=== PATIENT | female | born 1965 | race Caucasian/White ===

== ENCOUNTER → 2018-08-11 09:23 | Outpatient (CLI) | payer OTHER, SELFPAY ==
--- NOTE | 2018-08-11 09:27 | BI_ITS ---
MAMMOGRAPHY - BILATERAL SCREENING REASON FOR EXAM: Female, 53 years old. Routine annual screening examination. PERTINENT HISTORY: Grandmother with breast cancer. History of infected sebaceous glands in the right axillary region. TECHNIQUE: Digital bilateral breast devin (3D mammographic acquisition) in the CC and MLO projections. 2-D mediolateral oblique (MLO) and craniocaudad (CC) views of both breasts were obtained. CAD: Full Field Digital Mammography with Computer Added Detection was performed. COMPARISON: Comparison is made with prior examination dated July 25, 2017 and July 21, 2016. FINDINGS: Breast Composition: The breasts are heterogeneously dense, which may obscure small masses. There are no dominant masses or suspicious calcifications. Stable benign-appearing bilateral axillary lymph nodes. Stable well-defined nodules in the upper outer aspect of the right breast suggestive of intramammary lymph nodes. No other significant abnormalities are identified. There has been no significant change since the prior study. BI/SCREENING MAMM (CAD), BILAT IMPRESSION: Stable bilateral screening mammogram. Yearly follow-up mammogram recommended. (A) ASSESSMENT CATEGORY: BIRADS Category 2: Benign. A letter regarding these results will be sent to the patient by the facility within 30 days. Approximately 10% of breast cancers are not detected by mammography. A normal mammogram should not delay biopsy of a clinically suspicious abnormality. [id number] Electronically Signed: Teodoro Saleem MD at 10:08 EDT Tel [phone], Service support ,
== END ==
PROVIDERS: Family Provider Family Medicine; PCP Family Medicine; Visit Provider Obstetrics & Gynecology
DX: Z12.31 Encounter for screening mammogram for malignant neoplasm of breast (principal)
CPT/HCPCS: 77063; 77067

== ENCOUNTER → 2019-08-24 09:48 | Outpatient (CLI) | payer OTHER, SELFPAY ==
--- NOTE | 2019-08-24 09:51 | BI_ITS ---
MAMMOGRAPHY - BILATERAL SCREENING 3-D TOMOSYNTHESIS REASON FOR EXAM: Female, 54 years old. Screening PERTINENT HISTORY: No significant family history. BILATERAL DIGITAL MAMMOGRAM WITH TOMOSYNTHESIS: Mediolateraloblique and craniocaudal views demonstrate no evidence of dominant parenchymal masses. No cluster of microcalcifications or architectural distortion is seen. No evidence of skin thickening is identified There has been no significant change since 08/11/2018. Breast Density: The breast tissue is heterogeneously dense, which may obscure small masses. CAD was used to assist in final assessment. IMPRESSION: NORMAL MAMMOGRAM BILATERALLY. FINAL ASSESSMENT: BIRAD 1 (NEGATIVE) YEARLY MAMMOGRAM RECOMMENDED Approximately 10% of breast cancers are not detected by mammography. A normal mammogram should not delay biopsy of a clinically suspicious abnormality. Electronically Signed: Mark Watson, at 7:58 EDT Tel , Service support , BI/SCREEN MAMM (CAD) W/RICH MIRAMONTES
== END ==
PROVIDERS: Family Provider Family Medicine; PCP Family Medicine; Referring Provider Obstetrics & Gynecology; Visit Provider Obstetrics & Gynecology
DX: Z12.31 Encounter for screening mammogram for malignant neoplasm of breast (principal)
CPT/HCPCS: 77063; 77067

== ENCOUNTER 2020-07-30 10:07 | Day surgery (SDC) | payer OTHER, SELFPAY ==
[2020-07-24 15:58] LABS: Hematocrit 41.8 % (37-47); Hemoglobin 12.9 g/dL (12.0-15.0); Mean Corp Hgb Conc 30.9 g/dL (32-36); Mean Corpuscular Hgb 26.1 pg (27.0-32.0); Mean Corpuscular Volume 84.6 fL (81-99); Mean Platelet Vol. 10.1 fl (6.2-12.0); Platelet Count 438 K/mm3 (150-450); RBC Distribution Width SD 43.3 fl (35.1-43.9); Red Blood Count 4.94 M/mm3 (4.2-5.4); White Blood Count 11.8 K/mm3 (4.4-11.0)
[2020-07-24 16:11] LABS: International Normalized Ratio 1.2; Partial Thromboplast Time 26.7 Seconds (24.1-36.2); Prothrombin Time (Protime)PT. 14.4 SECONDS (11.7-14.9)
[2020-07-24 16:28] LABS: Anion Gap 5 (5-15); BUN 13 mg/dL (7-18); BUN/Creat Ratio 14.8 RATIO (10-20); Calcium,Total 9.5 mg/dL (8.5-10.1); Chloride 103 mmol/L (98-107); Creatinine, Serum 0.88 mg/dL (0.55-1.02); EST Glomerular Filtration Rate 71 mL/min (>60); Est Glom Filt Rate - Afr Amer 86 mL/min (>60); Glucose 114 mg/dL (74-106); Potassium 3.4 mmol/L (3.5-5.1); Sodium Level 140 mmol/L (136-145)
[2020-07-28 14:07] LABS: Hemoglobin A1c 6.9 % (3.8-5.6)
[2020-07-30] VITALS (7 sets, daily range): BP systolic 93–160; BP diastolic 29–98; PULSE 75–90; RESP 16–18; TEMP 25–38.2; O2SAT 93–97; BMI 39.9
[2020-07-30] MEDS: Lactated Ringers 1,000 ML 125 ML IV (10:46)
--- NOTE | 2020-07-30 11:30 | HP.PCM_ITS ---
History and Physical Date of Admission: 07/30/20 Surgical History and Physical Date: 07/30/2020 Name: NENITA RANGEL Age: 55 Date of : 1965 Nenita Rangel, a 55 year old female 2 0 2 0 2, presents for Hysteroscopy, dilation and curettage on July 30, 2020 at 11:45. Nenita is being seen for pre op visit. Pt to have HS, D and C with Dr. Jason Rock 07/30/20. Pt has 9mm endometrium and fibroids. Medications and allergies are up to date. Procedure consents signed and reviewed with pt. AM as above. hx postmenopasual bleeding with thickened endometrial stripe. Office biopsy complicated by cervical stenosis with insufficient endometrial sampling. m MEDICATIONS HISTORY: Current medications prescribed by our practice are: 1. misoprostol 200 mcg tablet, 4 tabs per vagina as directed Patient is also takin. Diovan HCT 320 mg-25 mg tablet, daily ALLERGIES: Lisinopril, Dry cough, Ceftin, C. difficile with diarrhea, Percocet and Anxiety Illnesses - hypertension, heart murmur and prediabetic Hospitalizations - Childbirth and see surgery Review of Systems: GENERAL - Denies fever, or chills SKIN - Denies skin changes EYES - Denies visual changes EARS - Denies difficulty hearing NOSE - Denies nasal congestion or bleeding MOUTH - Denies sore throat or difficulty swallowing NECK - Denies pain or swelling RESPIRATORY - Denies shortness of breath or wheezing CARDIOVASCULAR - Denies palpitations or chest pain GASTROINTESTINAL - Denies nausea, vomiting, diarrhea, constipation GENITOURINARY - Denies dysuria, frequency of urination, incontinence of urine MUSCULOSKELETAL - Denies joint or muscle pain NEUROLOGICAL - Denies localized numbness or weakness PSYCHIATRIC - Denies depression or anxiety ENDOCRINE - Denies heat or cold intolerance, weight loss or gain HEMATO-IMMUNOLOGIC - Denies excesive bleeding with cuts SOCIAL HISTORY: Alcohol Use - denies drinking Smoking - denies smoking Diet - moderate, balanced diet Lifestyle - Exercise - none Seat Belt Use - always Employer - [employer] 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 D and C 1989 ; - 2. C sections 1983 ; - 3. , 1987 ; - 4. Uterine Ablation 2004 ; - 5. Gallbladder Removal 2002 ; - 6. L Knee Surgery 2016 ; - Clean out PHYSICAL EXAM BP- 130/80 Sitting, Right arm, large cuff Temp- 98.6 Taken Orally Weight- 226.38210 lbs Height- 62.00 inch BMI:41.42 CONSTITUTIONAL - NAD, well nourished, and well developed SKIN - No rash, lesions, or ulcers HEENT - normocephalic, atraumatic, sclerae anicteric LUNGS - normal respiratory rate and rhythm CARDIAC - Regular rate and rhythm without rubs, murmurs, or gallops ABDOMEN - Without hepatosplenomegaly, distention, masses, rebound, or guarding; normal bowel sounds; no hernias EXTREMITIES - No edema or calf tenderness NEUROLOGICAL - normal gait, normal balance, normal motor PSYCHIATRIC - A and O to time, place, person, mood and affect Laboratory Tests 07/24/20 07/24/20 07/24/20 Range/Units 15:30 15:30 15:30 WBC (4.4-11.0) K/mm3 RBC (4.2-5.4) M/mm3 Hgb (12.0-15.0) g/dL Hct (37-47) % MCV (81-99) fL MCH (27.0-32.0) pg MCHC (32-36) g/dL RDW Std Deviation (35.1-43.9) fl RDW Coeff of [place] (11.6-14.6) % Plt Count (150-450) K/mm3 MPV (6.2-12.0) fl PT (11.7-14.9) SECONDS INR APTT (24.1-36.2) Seconds Sodium 140 (136-145) mmol/L Potassium 3.4 L (3.5-5.1) mmol/L Chloride 103 (98-107) mmol/L Carbon Dioxide 32.0 (21.0-32.0) mmol/L Anion Gap 5 (5-15) BUN 13 (7-18) mg/dL Creatinine 0.88 (0.55-1.02) mg/dL Est GFR (MDRD) Af Amer 86 (>60) mL/min Est GFR (MDRD) Non-Af 71 (>60) mL/min BUN/Creatinine Ratio 14.8 (10-20) RATIO Glucose 114 H (74-106) mg/dL Hemoglobin A1c 6.9 H (3.8-5.6) % Calcium 9.5 (8.5-10.1) mg/dL COVID-19 (EMIR) (Not Detected) Blood Type A POSITIVE Antibody Screen NEGATIVE 07/24/20 07/24/20 07/24/20 Range/Units 15:30 15:30 14:00 WBC 11.8 H (4.4-11.0) K/mm3 RBC 4.94 (4.2-5.4) M/mm3 Hgb 12.9 (12.0-15.0) g/dL Hct 41.8 (37-47) % MCV 84.6 (81-99) fL MCH 26.1 L (27.0-32.0) pg MCHC 30.9 L (32-36) g/dL RDW Std Deviation 43.3 (35.1-43.9) fl RDW Coeff of [place] 14.0 (11.6-14.6) % Plt Count 438 (150-450) K/mm3 MPV 10.1 (6.2-12.0) fl PT 14.4 (11.7-14.9) SECONDS INR 1.2 APTT 26.7 (24.1-36.2) Seconds Sodium (136-145) mmol/L Potassium (3.5-5.1) mmol/L Chloride (98-107) mmol/L Carbon Dioxide (21.0-32.0) mmol/L Anion Gap (5-15) BUN (7-18) mg/dL Creatinine (0.55-1.02) mg/dL Est GFR (MDRD) Af Amer (>60) mL/min Est GFR (MDRD) Non-Af (>60) mL/min BUN/Creatinine Ratio (10-20) RATIO Glucose (74-106) mg/dL Hemoglobin A1c (3.8-5.6) % Calcium (8.5-10.1) mg/dL COVID-19 (EMIR) Not Detected (Not Detected) Blood Type Antibody Screen US 07/03/20 UTERUS: 7.8 x 5.8 x 5.4cm. submucous fibroid seen measures 1.5 x 2.1 x 2cm. subserous fibroid seen measures 1.9 x 2.6 x 2.2cm. ENDOMETRIAL ECHO: 9.3mm. RIGHT OVARY: 2.3 x 1.1 x 1.2cm. LEFT OVARY: 1.9 x 2.2 x 1.4cm. BLADDER: No bladder masses visualized. FREE FLUID: NONE. OTHER PERTINENT FINDINGS: submucous fibroid seen, subserous fibroid seen and thick and irregular endo. ASSESSMENT/PLAN: 1. Postmenopausal Bleeding US shows 9mm endometrium with submucus fibroids office endometrial biopsy with insufficent endometrial sampling, cervical stenosis noted on exam Plan for hysteroscopy, dilation and curettage - r/b/i/a reviewed Preop labs appropriate, HbA1C 6.9 Prior EKG obtained and NSR Patient and spouse given opportunity to ask questions and questions answered to their satisfaction. Proceed as planned.
--- NOTE | 2020-07-30 11:55 | EMB_PTH ---
PATIENT: KARON RANGEL LOC: [facility] [place] U#:[id number] AGE/SX: 55/F ROOM: RE07/30/[address]: Dr. Alison Rock MD : 1965 BED: DIS: 07/30/2020 SPEC #: [id number] RECD: 07/30/20 14:15 STATUS: CECIL GRAEME #: [id number] RHEA: 07/30/20 11:[address]: Alison Israel DEPT: SURGICAL PATHOLOGY RECD BY: Ena Barboza ENTERED: 07/30/20 15:06 SP TYPE: ENDOM BX/C SANDRA DR: Dr. Antoine Cherry MD Tissues: Endometrium, NOS Procedures: Surgery Specimen Level IV HEADER OPERATION: Dilation and curettage PRE-OP DIAGNOSIS: Postmenopausal bleeding TISSUE SUBMITTED: Endometrial curettings MICROSCOPIC DIAGNOSIS Endometrial curettings: A fragment of endometrial polyp with simple endometrial hyperplasia without atypia. SJ:janell 07/31/20 MICROSCOPIC DESCRIPTION Slides are reviewed. GROSS DESCRIPTION Received in fixative is one container labeled with the patient's name and designated endometrial curettings. The specimen consists of a piece of ibarra-pink polyp measuring 2.5 x 1 x 0.5 cm. The polyp is bisected. Also present in the container are multiple fragments of hemorrhagic soft tissue measuring in aggregate 2 x 0.5 x 0.1 cm. The entire specimen is submitted in two cassettes. Cassette 2 contains the bisected polyp. / SJ:janell 07/30/20 TC:5 CPT: 11972
--- NOTE | 2020-07-30 13:19 | OP.PCM_ITS ---
Problem List (1) Postmenopausal bleeding Status: Acute Report of Operation Date of Procedure: 07/30/20 Pre-Operative Diagnosis: Postmenopausal bleeding. Thickened endometrium Post-Operative Diagnosis: Postmenopausal bleeding. Thickened endometrium Surgery/Procedure Performed:: Hysteroscopy. Dilation and curettage Description of Surgical Findings:: Cystic lesion at apex of the uterus, cervical stenosis Type of Anesthesia:: Local MAC Anesthesiologist: Roscoe Epstein Specimen's removed: Endometrial curettings Estimated Blood Loss (mL): 10 Fluids Replaced: 100 mL Description of Procedure: Indications: 55-year-old postmenopausal woman with complaint of postmenopausal bleeding. She underwent a pelvic ultrasound demonstrating a 9 mm endometrium. She had an office biopsy that was complicated by cervical stenosis. Despite an office cervical dilatation there was insufficient endometrial tissue for evaluation. Patient was advised to proceed with hysteroscopy D&C for further evaluation of her bleeding. Procedural risks, benefits, indications and alternatives were reviewed at length. Patient desired to proceed. Procedure: The patient was brought to the operating room and signed was performed. She is placed in the dorsal supine position and induced under MAC anesthetic. She was repositioned to dorsal lithotomy. An examination under anesthesia was performed. The perineum was prepped and draped in sterile fashion. Patient was placed into high lithotomy a bivalve speculum was placed vaginally the cervix grasped at the anterior cervical lip using a Gilbert tenaculum. A paracervical block was placed using 20 cc of 1% lidocaine. The cervix was subsequently dilated and hysteroscopy performed with a 5.5 mm scope with demonstration of a cystic lesion at the uterine fundus. Sharp curettage was performed however repeat hysteroscopy confirmed persistence of the cystic lesion. The cervix was up dilated to 30 Icelandic and hysteroscopy was performed using the 8 mm operative scope with attempt to biopsy the cystic mass using operative forceps unsuccessful. I again performed sharp curettage with retrieval of the cystic mass. Hysteroscopy was again performed demonstrating integrity of the uterine cavity. The procedure was complete. The patient was patient into dorsal supine, awakened, and transferred to the recovery room without complication. Sponge counts were correct x2. - Complications None, patient tolerated the procedure well. - Admit VTE Documentation VTE Present on Admission: No VTE Mechan Device Prophylaxis: SCD's VTE Pharm Prophylaxis ordered?: No
--- NOTE | 2020-07-30 13:25 | PCM.DC.D&C ---
Discharge Diet: No Restrictions Discharge Activity: Return to Normal Activity, May not drive while taking narcotic pain medications., May Shower, - - No tub bath for 2 weeks May resume sexual activity in: - - 2-4 weeks Call your doctor if you observe: Fever of 101 or Higher, Inability to urinate, Inability to have a bowel movement, Using more than one pad per hour, Shortness of breath, Chest pain, Calf discomfort, Uncontrolled pain Additional Instructions: You may take take Tylenol or Aleve at home as needed for pain. -Tylenol - 2 tabs by mouth every 8 hours as needed. -Aleve - 2 tabs by mouth every 12 hours. Allergies/Adverse Reactions: Allergies acetaminophen [From Percocet] Allergy (Verified 07/30/20 10:31) Chest tightness anxious/panic attacks lisinopril Allergy (Verified 07/30/20 10:30) Shortness of breath CAUSES COUGH oxycodone [From Percocet] Allergy (Verified 07/30/20 10:31) Chest tightness anxious/panic attacks Medications to take at Discharge Cholecalciferol (Vitamin D3) [Vitamin D3] 25 mcg PO DAILY 07/22/20 Fexofenadine HCl [Verenice Allergy] 60 mg PO DAILY 07/22/20 Theanine [l-Theanine] 25 gm MC DAILY 07/22/20 Valsartan/Hydrochlorothiazide [Diovan Hct 320-25 MG Tablet] 1 tab PO DAILY 07/22/20 traMADol [Ultram] 50 mg PO Q6H PRN PRN 3 Days #5 tablet 07/30/20 The following prescriptions were given: traMADol [Ultram] 50 mg PO Q6H PRN PRN 3 Days #5 tablet PRN Reason: pain Transmission Status: Received by [facility]/pharmacy #[id number] Primary Care Physician: Antoine Cherry MD [Primary Care Provider] - Test Results: Test results from this visit will be discussed in further detail at your follow-up appointment, if applicable. Please Follow Up With: Earnest When: 2-4 weeks
== END 2020-07-30 14:55 | disposition home or self-care (01) ==
LOC: SDC 10:08 → AC 10:08
PROVIDERS: Anesthesiology; PCP Family Medicine; Referring Provider Obstetrics & Gynecology; Visit Provider Obstetrics & Gynecology
PROC: (CPT 58120; principal; 2020-07-30 11:40)
DX: N85.01 Benign endometrial hyperplasia (principal); D25.0 Submucous leiomyoma of uterus; N95.0 Postmenopausal bleeding; Z11.59 Encounter for screening for other viral diseases; I10 Essential (primary) hypertension; R01.1 Cardiac murmur, unspecified; K58.9 Irritable bowel syndrome, unspecified; Z78.0 Asymptomatic menopausal state; Z86.2 Personal history of diseases of the blood and blood-forming organs and certain disorders involving the immune mechanism; Z79.899 Other long term (current) drug therapy
CPT/HCPCS: 00952; 58558; 36415; 80048; 83036; 85027; 85610; 85730; 86850; 86900; 86901; 87635; 88305; C9803; J7120; J2405; U0003

== ENCOUNTER → 2020-08-25 17:30 | Outpatient (CLI) | payer OTHER, SELFPAY ==
[2020-07-30 10:33] VITALS: BMI 39.9
--- NOTE | 2020-08-25 17:21 | BI_ITS ---
MAMMOGRAPHY - BILATERAL SCREENING REASON FOR EXAM: Female, 55 years old. Routine annual screening examination. PERTINENT HISTORY: Non-contributory. TECHNIQUE: Digital bilateral breast rich (3D mammographic acquisition) in the CC and MLO projections. 2-D mediolateral oblique (MLO) and craniocaudad (CC) views of both breasts were obtained. CAD: Full Field Digital Mammography with Computer Added Detection was performed. COMPARISON: Comparison is made with prior study dated 08/24/2019 and 08/11/2018. FINDINGS: Breast Composition: The breasts are heterogeneously dense, which may obscure small masses. There is a 5.1 mm well-defined nodule in the slightly upper lateral portion of the right breast. This is essentially unchanged. This was demonstrated to be a cyst on prior sonogram. There now is evidence of a 1 cm slightly irregular nodule in the slightly medial deep portion of the left breast. Correlation with ultrasound is recommended. No other significant abnormalities are identified. BI/SCREEN MAMM (CAD) W/RICH BILAT IMPRESSION: 1 cm slightly irregular nodule seen on the craniocaudad view along the slightly medial deep portion of the breast. Correlation with ultrasound is recommended. ASSESSMENT CATEGORY: BIRADS Category 0: Incomplete. Need additional imaging evaluation. A letter regarding these results will be sent to the patient by the facility within 30 days. Approximately 10% of breast cancers are not detected by mammography. A normal mammogram should not delay biopsy of a clinically suspicious abnormality. [id number] Electronically Signed: Teodoro Saleem, at 8:56 EDT , Service support ,
== END ==
PROVIDERS: PCP Family Medicine; Referring Provider Obstetrics & Gynecology; Visit Provider Obstetrics & Gynecology
DX: Z12.31 Encounter for screening mammogram for malignant neoplasm of breast (principal)
CPT/HCPCS: 77063; 77067

== ENCOUNTER → 2020-09-02 13:22 | Outpatient (CLI) | payer OTHER, SELFPAY ==
[2020-07-30 10:33] VITALS: BMI 39.9
--- NOTE | 2020-09-02 13:24 | US_ITS ---
STUDY: ULTRASOUND BREAST - LEFT REASON FOR EXAM: Female, 55 years old. Abnormal screening mammogram. TECHNIQUE: Axial and longitudinal images of the LEFT breast were performed with a high resolution ultrasound transducer. # OF IMAGES: 41 COMPARISON: Comparison is made with prior mammogram dated 08/25/2020. FINDINGS: LEFT Breast: At the 7 o''clock position of the breast at 5 cm from nipple, there is a 7 mm x 7 mm x 3 mm complex/solid nodule. Adjacent to this there is a similar appearing nodule measuring 6 mm x 7 mm x 3 mm. These may represent complicated cyst although tissue diagnosis is recommended. US/Breast Limited Unilateral IMPRESSION: 2 adjacent subcentimeters solid/cystic nodules at the 7 o''clock position of the breast at 5 cm from nipple. Biopsy is recommended. ASSESSMENT CATEGORY: BIRADS Category 4: Suspicious - Biopsy Should Be Considered. A letter regarding these results will be sent to the patient by the facility within 30 days. Electronically Signed: Teodoro Saleem, at 14:13 EDT , Service support ,
== END ==
PROVIDERS: PCP Family Medicine; Referring Provider Obstetrics & Gynecology; Visit Provider Obstetrics & Gynecology
DX: N63.20 Unspecified lump in the left breast, unspecified quadrant (principal)
CPT/HCPCS: 76642

== ENCOUNTER 2020-09-10 11:00 | Observation (INO) | payer OTHER, SELFPAY ==
[2020-07-30 10:33] VITALS: BMI 39.9
--- NOTE | 2020-09-04 16:17 | EKG12_ITS ---
Test Reason : PREOP Blood Pressure : / mmHG Vent. Rate : 075 BPM Atrial Rate : 075 BPM P-R Int : 146 ms QRS Dur : 074 ms QT Int : 376 ms P-R-T Axes : 051 010 015 degrees QTc Int : 419 ms Normal sinus rhythm with sinus arrhythmia Normal ECG Confirmed by OLEG COLON, MAURICIO ([id number]), publications editor OLI MOODY ([id number]) on 09/07/2020 8:13:37 AM Referred By: Alison Rock Confirmed By:MAURICIO DEJESUS MD
[2020-09-04 17:13] LABS: Hemoglobin 13.5 g/dL (12.0-15.0); Mean Corp Hgb Conc 31.4 g/dL (32-36); Mean Corpuscular Hgb 26.6 pg (27.0-32.0); Mean Corpuscular Volume 84.8 fL (81-99); Platelet Count 458 K/mm3 (150-450); RBC Distribution Width CV 13.7 % (11.6-14.6); Red Blood Count 5.07 M/mm3 (4.2-5.4); White Blood Count 11.8 K/mm3 (4.4-11.0)
[2020-09-04 17:27] LABS: International Normalized Ratio 1.2; Prothrombin Time (Protime)PT. 14.5 SECONDS (11.7-14.9)
[2020-09-04 17:45] LABS: Anion Gap 4 (5-15); BUN 14 mg/dL (7-18); BUN/Creat Ratio 18.7 RATIO (10-20); Calcium,Total 9.4 mg/dL (8.5-10.1); Chloride 105 mmol/L (98-107); Creatinine, Serum 0.75 mg/dL (0.55-1.02); EST Glomerular Filtration Rate 85 mL/min (>60); Est Glom Filt Rate - Afr Amer 103 mL/min (>60); Glucose 95 mg/dL (74-106); Potassium 3.9 mmol/L (3.5-5.1); Sodium Level 139 mmol/L (136-145)
[2020-09-04 17:49] LABS: Hemoglobin A1c 6.6 % (3.8-5.6)
[2020-09-08 21:00] VITALS: BP 120/70; PULSE 67; RESP 16; TEMP 36.6; O2SAT 96
[2020-09-10] VITALS (14 sets, daily range): BP systolic 120–132; BP diastolic 48–80; PULSE 64–93; RESP 16–20; TEMP 36.2–37.2; O2SAT 90–100; BMI 38.8
--- NOTE | 2020-09-10 00:26 | PCM.HPOB.BLA ---
- Problem List (1) Endometrial hyperplasia Status: Acute (2) Postmenopausal bleeding Status: Acute History and Physical Date of Admission: 09/10/20 Date: 09/08/2020 Name: NENITA RANGEL Age: 55 Date of : 1965 HISTORY OF PRESENT ILLNESS: On 09/08/2020, Nenita Rangel, a 55 year old female 2 0 2 0 2, presented for: -- Pre-Op -- Nenita is being seen for pre op visit. Pt to have LAVH/BS 09/08/[address] Jason Rock at [facility]. Pt is having surgery due to endometrial hyperplasia. Surgery consents signed and reviewed with pt. Pt states that Dr. Jason Rock recommended taking the ovaries and at the time Nenita did not want too but states today that she would like the ovaries taken. Pt states she has a biopsy of the left breast scheduled for 09/28/20. Medications and allergies are up to date. AM as above. hx endometrial hyperplasia s/p hysteroscopy, dilation and curettage and is scheduled for LAVH, bilateral salpingectomy. Previously discussed oophorectomy r/b and pt desires to also proceed with bilateral oophorectomy. Preop labs were done last week on 09/04/20. [facility] ALLERGIES: Lisinopril, Dry cough, Ceftin, C. difficile with diarrhea, Percocet and Anxiety MEDICATIONS HISTORY: Current medications prescribed by our practice are: 1. misoprostol 200 mcg tablet, 4 tabs per vagina as directed Patient is also takin. Diovan HCT 320 mg-25 mg tablet, daily REVIEW OF SYSTEMS: GENERAL - Denies fever, or chills SKIN - Denies skin changes EYES - Denies visual changes EARS - Denies difficulty hearing NOSE - Denies nasal congestion or bleeding MOUTH - Denies sore throat or difficulty swallowing NECK - Denies pain or swelling RESPIRATORY - Denies shortness of breath or wheezing CARDIOVASCULAR - Denies palpitations or chest pain GASTROINTESTINAL - Denies nausea, vomiting, diarrhea, constipation GENITOURINARY - Denies dysuria, frequency of urination, incontinence of urine MUSCULOSKELETAL - Denies joint or muscle pain NEUROLOGICAL - Denies localized numbness or weakness PSYCHIATRIC - Denies depression or anxiety ENDOCRINE - Denies heat or cold intolerance, weight loss or gain HEMATO-IMMUNOLOGIC - Denies excesive bleeding with cuts PAST HISTORY: Breast/Ovarian/Colon Cancers - Maternal Grandmother had Breast Cancer Illnesses - hypertension, heart murmur and prediabetic Hospitalizations - Childbirth and see surgery L. popliteal cyst; SURGICAL HISTORY: 1. 07/30/2020 hysteroscopy, D and C Alison Rock MD 2. D and C 1989 3. C sections 1983 4. , 1987 5. Uterine Ablation 2004 6. Gallbladder Removal 2002 7. 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 Illicit Drug Use - denies use of street drugs Sexual Activity - Hours Worked - 40+ Spouse-Sig Other Name - Roman Spouse-Sig 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 Control - postmenopausal PHYSICAL EXAMINATION BP- 140/82 Sitting, Right arm, large cuff Temp- 98.3 Taken Orally Weight- 220.40 lbs Height- 62.00 inch BMI:40.40 CONSTITUTIONAL - NAD, well nourished, and well developed SKIN - No rash, lesions, or ulcers HEENT - normocephalic, atraumatic, sclerae anicteric LUNGS - CTA x2 without wheezes, crackles or rales CARDIAC - Regular rate and rhythm without rubs, murmurs, or gallops ABDOMEN - Without hepatosplenomegaly, distention, masses, rebound, or guarding; normal bowel sounds; no hernias NEUROLOGICAL - normal gait, normal balance, normal motor PSYCHIATRIC - A and O to time, place, person, mood and affect Laboratory Tests 09/04/20 09/04/20 09/04/20 Range/Units 16:42 16:42 16:42 WBC 11.8 H (4.4-11.0) K/mm3 RBC 5.07 (4.2-5.4) M/mm3 Hgb 13.5 (12.0-15.0) g/dL Hct 43.0 (37-47) % MCV 84.8 (81-99) fL MCH 26.6 L (27.0-32.0) pg MCHC 31.4 L (32-36) g/dL RDW Std Deviation 42.0 (35.1-43.9) fl RDW Coeff of [place]oid[place] 13.7 (11.6-14.6) % Plt Count 458 H (150-450) K/mm3 MPV 10.0 (6.2-12.0) fl PT 14.5 (11.7-14.9) SECONDS INR 1.2 APTT 28.0 (24.1-36.2) Seconds Sodium (136-145) mmol/L Potassium (3.5-5.1) mmol/L Chloride (98-107) mmol/L Carbon Dioxide (21.0-32.0) mmol/L Anion Gap (5-15) BUN (7-18) mg/dL Creatinine (0.55-1.02) mg/dL Est GFR (MDRD) Af Amer (>60) mL/min Est GFR (MDRD) Non-Af (>60) mL/min BUN/Creatinine Ratio (10-20) RATIO Glucose (74-106) mg/dL Hemoglobin A1c (3.8-5.6) % Calcium (8.5-10.1) mg/dL COVID-19 (EMIR) (Not Detected) Blood Type A POSITIVE Antibody Screen NEGATIVE 09/04/20 09/04/20 09/04/20 Range/Units 16:42 16:42 16:20 WBC (4.4-11.0) K/mm3 RBC (4.2-5.4) M/mm3 Hgb (12.0-15.0) g/dL Hct (37-47) % MCV (81-99) fL MCH (27.0-32.0) pg MCHC (32-36) g/dL RDW Std Deviation (35.1-43.9) fl RDW Coeff of [place] (11.6-14.6) % Plt Count (150-450) K/mm3 MPV (6.2-12.0) fl PT (11.7-14.9) SECONDS INR APTT (24.1-36.2) Seconds Sodium 139 (136-145) mmol/L Potassium 3.9 (3.5-5.1) mmol/L Chloride 105 (98-107) mmol/L Carbon Dioxide 30.0 (21.0-32.0) mmol/L Anion Gap 4 L (5-15) BUN 14 (7-18) mg/dL Creatinine 0.75 (0.55-1.02) mg/dL Est GFR (MDRD) Af Amer 103 (>60) mL/min Est GFR (MDRD) Non-Af 85 (>60) mL/min BUN/Creatinine Ratio 18.7 (10-20) RATIO Glucose 95 (74-106) mg/dL Hemoglobin A1c 6.6 H (3.8-5.6) % Calcium 9.4 (8.5-10.1) mg/dL COVID-19 (EMIR) Not Detected (Not Detected) Blood Type Antibody Screen ASSESSMENT: 1. Benign Endometrial Hyperplasia PLAN BY DIAGNOSIS: 1. Benign Endometrial Hyperplasia, Polyp Of Corpus Uteri and Postmenopausal Bleeding Hx simple endometrial hyperplasia -residual risk for underlying ca 1-3%, declines medical managemement Plan for LAV, BSO - procedural r/b/i/a reviewed Preop labs reviewed: COVID19 neg, HbA1C 6.6, BMP, CBC, coags wnl Preop packet and instructions reviewed Consents signed and pt given opportunity to ask questions. Questions answered to her satisfaction
[2020-09-10] MEDS: Acetaminophen 500 MG Tablet 1000 MG PO (06:06)
[2020-09-10] MEDS: Heparin Injection (Vial) 5,000 UNIT/ML VIAL 5000 UNIT SC ×2 (06:07→22:05)
[2020-09-10] MEDS: Lactated Ringers 1,000 ML 100 ML IV ×3 (06:18→11:52)
[2020-09-10 06:41] LABS: Bedside Glucose 157 mg/dL (70-110)
[2020-09-10] MEDS: Cefotetan 2 GM in 0.9% NS 100 ML IV (07:30)
--- NOTE | 2020-09-10 07:30 | HYST_PTH ---
PATIENT: KARON RANGEL LOC: MS3 U#:[id number] AGE/SX: 55/F ROOM: MS323 RE09/10/[address]: Dr. Alison Rock MD : [id number] BED: 1 DIS: 09/11/2020 SPEC #: [id number] RECD: 09/10/20 11:22 STATUS: CECIL REShaw #: [id number] RHEA: 09/10/20 07:[address]: Alison Israel DEPT: SURGICAL PATHOLOGY RECD BY: Latanya Schwartz ENTERED: 09/10/20 12:12 SP TYPE: HYSTERECT OTHR DR: Dr. Antoine Cherry MD Tissues: Uterus, NOS Procedures: Surgery Specimen Level V HEADER OPERATION: Hysterectomy, LAVH, salpingo-oophorectomy PRE-OP DIAGNOSIS: Endometrial hyperplasia, postmenopausal bleeding TISSUE SUBMITTED: Uterus, cervix, bilateral fallopian tubes and ovaries MICROSCOPIC DIAGNOSIS Uterus, cervix, bilateral fallopian tubes and ovaries, hysterectomy and bilateral salpingo-oophorectomy: Cervix - no pathologic diagnosis. Endometrium - proliferative endometrium with cystic changes. Myometrium - intramural and subserosal leiomyomas (largest measuring 2.5 cm in greatest dimension). - Adenomyosis. Bilateral fallopian tubes - no pathologic diagnosis. Bilateral ovaries - no pathologic diagnosis. Left tubo-ovarian adhesions. SJ:janell 09/11/20 COMMENT Please make reference to previous specimen ([id number]) endometrial cavity with diagnosis of a fragment of endometrial polyp with simple endometrial hyperplasia without atypia. MICROSCOPIC DESCRIPTION Slides are reviewed. GROSS DESCRIPTION Received in fixative is one container labeled with the patient's name and designated uterus, cervix, bilateral fallopian tubes and ovaries. The specimen consists of a hysterectomy specimen consisting of uterus with cervix and attached bilateral fallopian tubes and ovaries. The uterus with cervix weighs 135?gm and measures 10.5 x 7 x 6 cm. A subserosal nodule is noted on the posterior surface. The rest of the serosal surface is ibarra, glistening and unremarkable. The ectocervical mucosa is unremarkable. The external os is circular in contour. The endocervical canal measures 3.5 cm in length and the endocervical mucosa is ibarra, glistening and unremarkable. The endometrial cavity is compressed and narrow and measures 4.5 cm in length and up to 1.5 cm in width. The endometrium is congested without any mass lesion and measures 0.1 cm in thickness. Sections of the uterine wall reveal multiple intramural and subserosal nodular masses. The large mass in the subserosa measures 2.5 cm in greatest dimension. Sections of these masses reveal ibarra whorled cut surfaces without areas of hemorrhage, necrosis or cystic degeneration. Sections of the uterine wall also reveal ill-defined, trabeculated surfaces suspicious for adenomyosis. The involved uterine wall measures up to 3 cm in thickness. The right fallopian tube measures 6 cm in length and 0.5 cm in diameter. The fimbrial end is identified. Tuboovarian adhesions are not seen. The right ovary measures 2.5 x 2 x 1.5 cm. Sections reveal unremarkable cut surfaces. The left fallopian tube measures 5.5 cm in length and up to 1 cm in diameter. Focal tubo-ovarian adhesions are noted. The left ovary measures 2.5 x 2 x 1.5 cm. Sections do not reveal any mass lesion. Water Purifier Operator sections are submitted in 16 cassettes as follows: 1??anterior cervix, 2 - posterior cervix, 3-5 - anterior uterine wall, 6-8 - posterior uterine wall, entire endometrium is submitted, 9 - largest subserosal nodular mass, 10 - smaller intramural nodular masses, 11 & 12 - service support representative sections uterine wall with trabeculated cut surfaces, 13 - right fallopian tube and ovary, 1416 - left fallopian tube and ovary. / TRAY:janell 09/10/20 TC:1 CPT: 28407
[2020-09-10] MEDS: Lubricating Jelly 60 GM Tube 30 GM TOPICAL (08:07)
[2020-09-10] MEDS: Vasopressin 20 UNITS/ML Vial (08:07)
[2020-09-10] MEDS: Bupivacaine Mpf 0.5% 30 ML VIAL (08:20)
--- NOTE | 2020-09-10 10:39 | PCM.OPRPT ---
Problem List (1) Endometrial hyperplasia Status: Acute (2) Postmenopausal bleeding Status: Acute Report of Operation Date of Procedure: 09/10/20 Pre-Operative Diagnosis: 1. Postmenopausal bleeding. 2. Endometrial hyperplasia. 3. Fibroid uterus Post-Operative Diagnosis: 1. Postmenopausal bleeding. 2. Endometrial hyperplasia without atypia. 3. Fibroid uterus. 4. Pelvic adhesions Surgery/Procedure Performed:: 1. Laparoscopic assisted vaginal hysterectomy. 2. Bilateral salpingo-oophorectomy. 3. 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 She had underwent pelvic ultrasound demonstrating thickened endometrial stripe. Subsequent hysteroscopy dilatation curettage demonstrated endometrial hyperplasia without atypia. She is counseled regarding management options declined medical management and opted to proceed with hysterectomy. Plan for laparoscopic assisted vaginal hysterectomy, bilateral salpingo-oophorectomy. Procedural risks, benefits, indications and alternatives were reviewed at length. Informed consent was obtained. Procedure: The patient was brought to the operating room and signed was performed. She is placed in the dorsal supine position and induced under general anesthesia and intubated. She was repositioned to dorsolithotomy and examination under anesthesia was performed. Her arms were tucked at her sides. The perineum and abdomen were prepped and draped in sterile fashion. A Savage catheter was placed into the bladder. The patient was placed into high lithotomy and weighted speculum placed vaginally. The cervix grasped the anterior cervical lip and vasopressin was injected for total of 20 cc at concentration 20 units in 100 cc of normal saline. The uterus sounded to 7 cm. A [employer] uterine manipulator was placed and secured. The tenaculum was removed from the cervix and the speculum removed from the vagina. The patient was placed into low lithotomy attention turned to the abdomen. An inferior umbilical incision was made using the scalpel. Veress needle was placed with successful hanging drop test and no aspirate with low abdominal entry pressures. The abdomen was insufflated to 15 mmHg. A tap block was placed under laparoscopic guidance in the right and left lower quadrants. Incisions were made at each of the sites and 5 mm ports also placed at each of the sites. In similar fashion a suprapubic incision was made and 5 mm port also placed here under laparoscopic guidance. The patient was placed into Trendelenburg and abdominal pelvic inspection was performed demonstrating bilateral adnexal adhesions. The left adnexa had multiple filmy adhesions regions encasing the infundibulopelvic ligament adhering to the sigmoid colon. The right adnexal adhesions adhered to the distal fallopian tube and the ovary to the ovarian fossa. I proceeded with sharp and blunt dissection of the left pelvic adhesions. A omental adhesion to the left lower pelvic anterior abdominal wall was lysed sharply. The left adnexal adhesions were lysed sharply and bluntly freeing up the infundibulopelvic ligament. The left infundibulopelvic ligament was clamped, coagulated and transected using the Enseal device. The left ureter tract was identified. I proceeded with clamping, coagulation and transection of the left round ligament. The broad ligament was opened anteriorly as well as posteriorly with skeletonization of the uterine vessels. And bladder flap was created at the left. Attention was turned to the right adnexa and adhesions were bluntly and sharply dissected however there was limited ovarian mobility as it was socked into the ovarian fossa. Due to limited mobility I deferred transection of the infundibulopelvic ligament. I proceeded with transection of the right round ligament using the Enseal device. The anterior broad ligament was opened with skeletonization of the uterine vessels and the broad ligament posteriorly was also opened. Opening of the broad ligament allowed posterior axis to the ovarian fossa and the ovarian adhesions were subsequently dissected sharply and bluntly. The proximal right infundibulopelvic ligament was clamped, electrocoagulated and transected using the Enseal device. The bladder flap at the right was completed. The uterine arteries were electrocoagulated bilaterally. Approximately 45 minutes was spent in adhesiolysis laparoscopically. The laparoscope was removed the abdomen was desufflated and attention turned to the perineum. The patient was repositioned to high lithotomy with less steep Trendelenburg. Weighted speculum was placed vaginally and the ZUMI uterine manipulator was removed. The cervix was grasped using a single-tooth tenaculum. A circumferential incision was made using the scalpel around the cervical vesicle junction. The anterior vesicovaginal membrane was dissected sharply using Metzenbaum scissors and the anterior cul-de-sac peritoneum was identified entered sharply. The curved Dalton was placed at this site. Attention was turned to the posterior vagina and the uterosacral ligaments were palpable. The posterior colpotomy further dissected until the posterior cul-de-sac peritoneum was identified then entered sharply. A long weighted speculum was placed into the posterior cul-de-sac. The uterosacral ligament then cardinal ligament and uterine vessels were serially Servando clamped, cut and suture ligated using 0 Vicryl with delivery of the uterus cervix, bilateral tubes and ovaries en bloc. There was an arteriolar bleed at the upper right pedicle which was controlled using suture ligation also with 0 Vicryl. A modified Lloyd culdoplasty was performed incorporating the uterosacral ligaments with the anterior and posterior peritoneum pursestring stitch. The vaginal cuff was reapproximated using serial figure of 8 sutures with good hemostasis. Patient was placed into low lithotomy and attention turned to the abdomen. And laparoscopy again performed with irrigation and suction of the pelvis. The vaginal cuff appeared hemostatic internally as well. The procedure was complete. The laparoscope was removed the abdomen was desufflated. Patient was given several deep breaths to help with further desufflation. The ports were removed from the abdomen. The skin was reapproximated using 4-0 Monocryl by the surgical first front ventilator under my supervision. Steri-Strips and OpSite dressing were placed over each of these incisions. A total of 30 cc of half percent Marcaine was injected for a tap block and locally at the end of the procedure at the incisional sites. The Savage catheter was removed. The patient was placed into dorsal supine position, awakened extubated and will be transferred to the recovery room. Sponge and instrument and needle counts were correct x2. Patient tolerated the procedure well. - Complications none - Admit VTE Documentation VTE Present on Admission: No VTE Mechan Device Prophylaxis: SCD's VTE Pharm Prophylaxis ordered?: Yes
[2020-09-10 11:26] LABS: Bedside Glucose 181 mg/dL (70-110)
[2020-09-10] MEDS: Ondansetron 4 MG/2 ML Vial IV (13:22)
--- NOTE | 2020-09-10 13:29 | CPS ---
pt refused at this due to nausea
[2020-09-10] MEDS: Ketorolac 30 MG/ML Syringe IV ×2 (17:03→23:12)
[2020-09-10 17:25] LABS: Bedside Glucose 157 mg/dL (70-110)
[2020-09-10 23:55] LABS: Bedside Glucose 136 mg/dL (70-110)
[2020-09-11 03:30] VITALS: BP 105/52; PULSE 59; RESP 16; TEMP 36.8; O2SAT 98
[2020-09-11] MEDS: Ketorolac 30 MG/ML Syringe IV (04:00)
[2020-09-11] MEDS: 0.9% Saline Lock 10 ML Syringe IV (04:00)
[2020-09-11 07:06] LABS: Bedside Glucose 116 mg/dL (70-110)
[2020-09-11 07:27] LABS: Hematocrit 35.6 % (37-47); Hemoglobin 11.1 g/dL (12.0-15.0); Mean Corp Hgb Conc 31.2 g/dL (32-36); Mean Corpuscular Hgb 26.6 pg (27.0-32.0); Mean Corpuscular Volume 85.2 fL (81-99); Platelet Count 348 K/mm3 (150-450); RBC Distribution Width CV 13.9 % (11.6-14.6); Red Blood Count 4.18 M/mm3 (4.2-5.4); White Blood Count 16.7 K/mm3 (4.4-11.0)
[2020-09-11 07:50] VITALS: O2SAT 95
[2020-09-11 07:57] LABS: EST Glomerular Filtration Rate 79 mL/min (>60); Est Glom Filt Rate - Afr Amer 96 mL/min (>60); Estimated Creatinine Clearance 64.95 ml/min
--- NOTE | 2020-09-11 08:33 | PN.OBGYN_ITS ---
Patient Problems: Active and Suspected Problems Postmenopausal bleeding (Acute) Endometrial hyperplasia (Acute) Subjective: Nausea resolved. No flatus yet or bowel movement. OOB, voiding without difficulty. Pain controlled. Objective: AVSS - Physical Exam Vitals/I&O's: Vital Signs Temp Pulse Resp BP Pulse Ox 98.2 F 59 L 16 105/52 L 98 09/11/20 03:30 09/11/20 03:30 09/11/20 03:30 09/11/20 03:30 09/11/20 03:30 Oxygen Flow Rate (L/min) 3 Oxygen Delivery Method Nasal Cannula Weight: 99.518 kg Body Mass Index (BMI) 38.8 Finger Stick Blood Glucose 181 Intake and Output for Last 24 Hours 09/09/20 09/10/20 09/11/20 23:59 23:59 23:59 Intake Total 3750 / 3750 120 / 120 Output Total 450 / 750 550 / 550 Balance 3300 / 3000 -430 / -430 General: Alert, Oriented x3, Cooperative, No apparent distress HEENT: Atraumatic, Normocephalic Lungs: Clear to auscultation, Normal air movement Cardiovascular: Regular rate, Regular Rhythm Abdomen: Bowel Sounds Present, Soft, Non Tender, Non-Distended Extremities: No edema, No Calf Tenderness Neurological: Neuro grossly intact Psych/Mental Status: Normal Affect, Appropriate, Alert and oriented to time, place, person, mood and affect Laboratory Results 09/10/20 11:21: POC Glucose 181 H 09/10/20 16:58: POC Glucose 157 H 09/10/20 22:03: POC Glucose 136 H 09/11/20 06:59: POC Glucose 116 H 09/11/20 07:05: WBC 16.7 H, RBC 4.18 L, Hgb 11.1 L, Hct 35.6 L, MCV 85.2, MCH 26.6 L, MCHC 31.2 L, RDW Std Deviation 43.0, RDW Coeff of Loida 13.9, Plt Count 348, MPV 10.0 09/11/20 07:05: Creatinine 0.80, Estim Creat Clear Calc 64.95, Est GFR (MDRD) Af Amer 96, Est GFR (MDRD) Non-Af 79 Current Medications Acetaminophen (Acetaminophen 500 Mg Tablet) 1,000 mg PO Q8H PRN PRN PRN Reason: Pain Score 1-3/10 or Fever Dextrose (Dextrose 50%-Water 25 Gm/50 Ml Disp.Syrin) 0 gm IV X1 PRN; Protocol PRN Reason: Hypoglycemia Glucagon (Glucagon 1 Mg/Ml Syringe) 1 mg IM .X1 PRN PRN Reason: Hypoglycemia Heparin Sodium (Porcine) (Heparin Injection (Vial) 5,000 Unit/Ml Vial) 5,000 unit SC Q12 SANDRA Last Admin: 09/10/20 22:05 Dose: 5,000 unit Documented by: Hydrochlorothiazide (Hydrochlorothiazide 25 Mg Tablet) 25 mg PO DAILY SANDRA Hydromorphone HCl (Hydromorphone 1 Mg/Ml Syringe) 0.5 - 1 mg IV Q3H PRN PRN PRN Reason: Pain Score 4-10 Insulin Human Lispro (Insulin Lispro 100 Unit/Ml Insuln.Pen) 1 - 4 unit SC ACHS [facility] Last Admin: 09/11/20 07:30 Dose: Not Given Documented by: Ketorolac Tromethamine (Ketorolac 30 Mg/Ml Syringe) 30 mg IV Q6H [facility] Stop: 09/15/20 16:31 Last Admin: 09/11/20 04:00 Dose: 30 mg Documented by: Loratadine (Loratadine 10 Mg Tablet) 5 mg PO DAILY PRN PRN Reason: ALLERGIES Losartan Potassium (Losartan Potassium 100 Mg Tablet) 100 mg PO DAILY SANDRA Ondansetron HCl (Ondansetron 4 Mg/2 Ml Vial) 4 mg IV Q4H PRN PRN PRN Reason: NAUSEA Last Admin: 09/10/20 13:22 Dose: 4 mg Documented by: Sodium Chloride (0.9% Saline Lock 10 Ml Syringe) 10 - 40 ml IV UD PRN PRN Reason: SALINE FLUSH Last Admin: 09/11/20 04:00 Dose: 10 ml Documented by: Medical Necessity - Tobacco Use Smoking Status: Never smoker Tobacco Use: Non-smoker Assessment/Plan All Active Problems Postmenopausal bleeding (Acute) Endometrial hyperplasia (Acute) 55yo POD#1 s/p LAVH, BSO -Doing well -Reg diet -DVT ppx -Plan for d/c home
--- NOTE | 2020-09-11 08:36 | PCM.WORK.EX ---
Work/School Excuse Work/School Excuse for:: Caregiver/Parent/Family Please excuse this person from:: Work From: 09/10/20 - Roman's had major surgery on 09/10/20 and requires assistance through 09/13/20 through: 09/13/20
--- NOTE | 2020-09-11 08:39 | DCINST_ITS ---
Discharge Diet: No Restrictions Discharge Activity: Return to Normal Activity, May not drive while taking narcotic pain medications., May Shower, - - May take a tub bath in 2 weeks May shower in (days): 0 Lifting Restrictions: 5-10 lb Call your doctor if you observe: Fever of 101 or Higher, Change in Color, Inability to urinate, Inability to have a bowel movement, Using more than one pad per hour, Shortness of breath, Chest pain, Calf discomfort, Uncontrolled pain Suture Line Care: Avoid Pulling/Pushing Remove Dressing in (days):: 1 - Remove steristrips bandaids in 4-5 days Cleanse incision/area with: Soap & Water Allergies/Adverse Reactions: Allergies lisinopril Allergy (Verified 09/10/20 05:58) Shortness of breath CAUSES COUGH oxycodone [From Percocet] Allergy (Verified 09/10/20 05:58) Chest tightness anxious/panic attacks Medications to take at Discharge Cholecalciferol (Vitamin D3) [Vitamin D3] 25 mcg PO DAILY 07/22/20 Fexofenadine HCl [Verenice Allergy] 60 mg PO DAILY PRN 07/22/20 Theanine [l-Theanine] 25 gm MC DAILY PRN 07/22/20 Valsartan/Hydrochlorothiazide [Diovan Hct 320-25 MG Tablet] 1 tab PO DAILY 07/22/20 Immucore 1 tab PO DAILY 08/28/20 Ibuprofen 600 mg PO TID PRN #30 tab 09/11/20 traMADol [Ultram] 50 mg PO Q6H PRN PRN #5 tablet 09/11/20 The following prescriptions were given: Ibuprofen 600 mg PO TID PRN #30 tab PRN Reason: Pain 1-10 Or Fever Transmission Status: Pending to [id number] traMADol [Ultram] 50 mg PO Q6H PRN PRN #5 tablet PRN Reason: severe pain Transmission Status: Received by [id number] Primary Care Physician: Antoine Cherry MD [Primary Care Provider] - Test Results: Test results from this visit will be discussed in further detail at your follow- up appointment, if applicable. Please Follow Up With: Earnest When: 1-2 weeks
[2020-09-11 08:50] VITALS: PULSE 60
[2020-09-11 10:22] VITALS: BP 119/54; PULSE 64; RESP 16; TEMP 36.9; O2SAT 95
== END 2020-09-11 10:38 | disposition home or self-care (01) ==
LOC: SDC 11:51 → MS3 09-11 07:23
PROVIDERS: Anesthesiology; Admitting Provider Obstetrics & Gynecology; PCP Family Medicine; Referring Provider Obstetrics & Gynecology; Visit Provider Obstetrics & Gynecology
PROC: 0UT9FZZ Resection of Uterus, Via Natural or Artificial Opening With Percutaneous Endoscopic Assistance (ICD-10-PCS; CPT 58552; principal; 2020-09-10 07:05)
DX: D25.2 Subserosal leiomyoma of uterus (principal); D25.1 Intramural leiomyoma of uterus; N80.0 Endometriosis of uterus; N95.0 Postmenopausal bleeding; R73.03 Prediabetes; I10 Essential (primary) hypertension; R01.1 Cardiac murmur, unspecified; Z79.899 Other long term (current) drug therapy; N84.0 Polyp of corpus uteri; F41.9 Anxiety disorder, unspecified; K58.9 Irritable bowel syndrome, unspecified
CPT/HCPCS: 58552; 36415; 80048; 82565; 82962; 83036; 85027; 85610; 85730; 86850; 86900; 86901; 87635; 88307; 93005; 94762; 96361; 96374; 99218; 99251; C9803; J7120; A4216; C1760; G0378; G0463; J2405; U0003

== ENCOUNTER → 2020-09-30 09:28 | Outpatient (CLI) | payer OTHER, SELFPAY ==
[2020-09-28 13:14] VITALS: BMI 36.9
--- NOTE | 2020-09-30 09:30 | PCM.HP.BLA ---
Problem List (1) Abnormal mammogram of left breast Status: Acute History and Physical Date of Admission: 09/30/20 Intake Visit Reasons: Birads 4 Left Breast Allergies cefuroxime [From Ceftin] Allergy (Mild, Verified 09/28/20 13:15) Abd cramps/diarrhea lisinopril Allergy (Verified 09/28/20 13:11) Shortness of breath oxycodone [From Percocet] Allergy (Verified 09/28/20 13:11) Chest tightness Medications Cholecalciferol (Vitamin D3) [Vitamin D3] 25 mcg PO DAILY 07/22/20 [History Confirmed 09/28/20] Fexofenadine HCl [Verenice Allergy] 60 mg PO DAILY PRN 07/22/20 [History Confirmed 09/28/20] Theanine [l-Theanine] 25 gm MC DAILY PRN 07/22/20 [History Confirmed 09/28/20] Valsartan/Hydrochlorothiazide [Diovan Hct 320-25 MG Tablet] 1 tab PO DAILY 07/22/20 [History Confirmed 09/28/20] Immucore 1 tab PO DAILY 08/28/20 [History Confirmed 09/28/20] Ibuprofen 600 mg PO TID PRN #30 tab 09/11/20 [Rx Confirmed 09/28/20] traMADol [Ultram] 50 mg PO Q6H PRN PRN #5 tab 09/11/20 [Rx Confirmed 09/28/20] PFSH Medical History (Updated 09/28/20 @ 13:[address] Yusef Zarco MD) Abnormal mammogram of left breast (Acute) Postmenopausal bleeding (Acute) Endometrial hyperplasia (Acute) Family History (Updated 09/28/20 @ 13:14 by Sarah Jensen) Grandmother Breast cancer Hypertension CVA (cerebral vascular accident) Thyroid disorder Grandfather Heart disease Hypertension Cancer lung Aunt Cancer rectal,lung Thyroid disorder Social History (Updated 09/28/20 @ 13:[address] Yusef Zarco MD) Smoking Status: Never smoker alcohol intake: never HPI HPI HPI: KARON RANGEL, is a 55 F who presents to the office today for surgical consultation regarding an abnormal left mammogram. The patient is referred by Dr. Antoine Cherry and a written copy of my surgical consult and recommendations will return to him as well as Dr. Alison Rock. 55-year-old female. a 2. Menarche at age 10. First child born when she was 18. She did breast-feed. No history of previous breast biopsies. Not on any estrogen medication. Family history notable for a maternal grandmother had breast cancer. The patient is approximately 2 and half weeks status post laparoscopic assisted vaginal hysterectomy with bilateral salpingo-oophorectomy for abnormal D&C which ended up with final pathology being benign. The patient had routine screening mammography as noted below performed on August 25, 2020 within the left breast ultrasound suggesting BI-RADS Category 4 with 2 adjacent lesions 7 o'clock position +5 cm. These appear to be solid cystic. [facility] [address] [place] [address] SCREEN MAMM (CAD) W/RICH BILAT MR#: [id number] Name: KARON RANGEL ANNRep #:[id number] : [id number] From: Teodoro Saleem MD PCP:Dr. Antoine Cherry MD Status:[facility] Study:SCREEN MAMM (CAD) W/RICH BILAT Date of Exam:08/25/20 Exam#[id number] Ordering Dr: Alison Israel MD MAMMOGRAPHY - BILATERAL SCREENING REASON FOR EXAM: Female, 55 years old. Routine annual screening examination. PERTINENT HISTORY: Non-contributory. TECHNIQUE: Digital bilateral breast rich (3D mammographic acquisition) in the CC and MLO projections. 2-D mediolateral oblique (MLO) and craniocaudad (CC) views of both breasts were obtained. CAD: Full Field Digital Mammography with Computer Added Detection was performed. COMPARISON: Comparison is made with prior study dated 08/24/2019 and 08/11/2018. FINDINGS: Breast Composition: The breasts are heterogeneously dense, which may obscure small masses. There is a 5.1 mm well-defined nodule in the slightly upper lateral portion of the right breast. This is essentially unchanged. This was demonstrated to be a cyst on prior sonogram. There now is evidence of a 1 cm slightly irregular nodule in the slightly medial deep portion of the left breast. Correlation with ultrasound is recommended. No other significant abnormalities are identified. BI/SCREEN MAMM (CAD) W/RICH BILAT IMPRESSION: 1 cm slightly irregular nodule seen on the craniocaudad view along the slightly medial deep portion of the breast. Correlation with ultrasound is recommended. ASSESSMENT CATEGORY: BIRADS Category 0: Incomplete. Need additional imaging evaluation. A letter regarding these results will be sent to the patient by the facility within 30 days. Approximately 10% of breast cancers are not detected by mammography. A normal mammogram should not delay biopsy of a clinically suspicious abnormality. [id number] Electronically Signed: Teodoro Saleem, at 8:56 EDT , Service support , [facility] [address] [place] [address] Breast Limited Unilateral MR#: [id number] Name: KARON RANGEL ANNRep #:[id number] : [id number] From: Teodoro Saleem MD PCP:Dr. Antoine Cherry MD Status:[facility] Study:Breast Limited Unilateral Date of Exam:09/02/20 Exam#[id number] Ordering Dr: Alison Israel MD STUDY: ULTRASOUND BREAST - LEFT REASON FOR EXAM: Female, 55 years old. Abnormal screening mammogram. TECHNIQUE: Axial and longitudinal images of the LEFT breast were performed with a high resolution ultrasound transducer. # OF IMAGES: 41 COMPARISON: Comparison is made with prior mammogram dated 08/25/2020. FINDINGS: LEFT Breast: At the 7 o''clock position of the breast at 5 cm from nipple, there is a 7 mm x 7 mm x 3 mm complex/solid nodule. Adjacent to this there is a similar appearing nodule measuring 6 mm x 7 mm x 3 mm. These may represent complicated cyst although tissue diagnosis is recommended. US/Breast Limited Unilateral IMPRESSION: 2 adjacent subcentimeters solid/cystic nodules at the 7 o''clock position of the breast at 5 cm from nipple. Biopsy is recommended. ASSESSMENT CATEGORY: BIRADS Category 4: Suspicious - Biopsy Should Be Considered. A letter regarding these results will be sent to the patient by the facility within 30 days. Electronically Signed: Teodoro Saleem, at 14:13 EDT , Service support , HPI HPI HPI: KARON RANGEL, is a 55 F who presents to the office today for Exam Const General: cooperative, comfortable, no acute distress Chest Other: Right breast: No focal mass. No nipple discharge. No axillary or clavicular adenopathy Left breast: No focal mass. No nipple discharge. No axillary or clavicular adenopathy Assessment & Plan Problems 1. Abnormal mammogram of left breast R92.8 Plan 55-year-old female. Abnormal left breast mammogram. I have reviewed her mammographic imaging and ultrasound images. The ultrasound images suggest 2 solid cystic lesions adjacent to each other. This does not visually seem to be what shows up on her mammogram. It is of note that it was her mammogram that was felt to be of interest. On today's evaluation I did perform an ultrasound on her. She actually has multiple small tiny cystic areas of her left breast. The area possibly in question left breast 7 o'clock position +5 cm suggest possibly a dilated duct some cystic lesions. I certainly could not correlate that this area was what appears to be on the mammogram. The area on ultrasound appears to have a more benign appearance. With all of this in mind since it was the original abnormal mammogram that brought attention to her findings and because on ultrasound she seems to have various areas of irregularity and cystic change believe that a stereotactic needle core biopsy addressing the initial density would be pertinent. I discussed with her technique, benefit, risk, alternatives. She has had an opportunity ask and have questions answered. We will schedule an attempt a stereotactic left breast biopsy lower inner left breast. Pending those results then can consider whether she requires any additional intervention. It might be reasonable posterior tactic intervention to perform the left breast ultrasound to see if the area on ultrasound actually correlates with the area on mammogram. I appreciate the opportunity of assisting with her surgical care Copy: Dr. Antoine Cherry and Dr. Alison Zarco M.D., F.A.C.S. Coding Level of Care Code 55500 Diagnoses Abnormal mammogram of left breast R92.8 I have re-examined the patient. There are no clinical changes since date of exam. Procedure Criteria Procedure Type: Elective COVID Risk Discussion: The surgeon/proceduralist and patient have discussed in detail the risk of exposure to and/or potential harm posed by the COVID-19 virus with having a surgery/procedure at this time versus the risk of delaying the surgery/procedure. It is not possible to know either the risk of delaying the surgery or procedure or chance of getting an infection with perfect accuracy, but a joint decision was made between the patient and the surgeon/proceduralist to proceed at this time with the scheduled surgery/procedure as indicated on the consent form.
--- NOTE | 2020-09-30 10:32 | BI_ITS ---
MAMMOGRAPHY - UNILATERAL DIAGNOSTIC: LEFT BREAST REASON FOR EXAM: Female, 55 years old. Attempted left stereotactic breast biopsy. PERTINENT HISTORY: Questionable abnormal density in the medial deep portion of the left breast. TECHNIQUE: Cranial catheter view of the left breast was obtained. Of both breasts . CAD: Full Field Digital Mammography with Computer Added Detection was performed. COMPARISON: Comparison is made with prior mammogram dated 08/25/2020. FINDINGS: Breast Composition: The breasts are heterogeneously dense, which may obscure small masses. There are no dominant masses or suspicious calcifications. The previously seen nodular density in the deep slightly medial aspect of the left breast is not seen at this time. No other significant abnormalities are identified. BI/DIAG MAMM W/CAD, UNILAT IMPRESSION: Stable unilateral diagnostic mammogram. One year follow-up mammogram recommended. (A) ASSESSMENT CATEGORY: BIRADS Category 2: Benign. A letter regarding these results will be sent to the patient by the facility within 30 days. Approximately 10% of breast cancers are not detected by mammography. A normal mammogram should not delay biopsy of a clinically suspicious abnormality. Electronically Signed: Teodoro Saleem, at 11:29 EST , Service support ,
--- NOTE | 2020-09-30 11:36 | OP.PCM_ITS ---
Problem List (1) Abnormal mammogram of left breast Status: Acute Report of Operation Date of Procedure: 09/30/20 Pre-Operative Diagnosis: Abnormal left mammogram Post-Operative Diagnosis: Normal left mammogram Surgery/Procedure Performed:: Attempted stereotactic needle core biopsy left breast with resolved area of concern Description of Surgical Findings:: Timeout and informed consent was obtained. 55-year-old female was taken to the mammography suite placed prone on the table. She was placed in the left breast cc view. Several images were obtained but the density in question highlighted per radiology could not be identified. So she was released from the stereotactic device taken over and had traditional mammograms performed and then 3D mammograms with CAD review. Those images failed to demonstrate any residual item of concern currently. I instructed the patient that I did not currently have an area of concern to biopsy. This would tend to correlate with the office attempt at ultrasound- guided biopsy when no clear distinct item could be identified that correlated well with what was seen on mammography. Today's procedure was aborted. We will wait final interpretation of her mammographic images that were obtained today. At this point I am anticipating that none surgical routine conservative follow-up will be pursued. Yusef Zarco M.D., F.A.C.S.
== END ==
PROVIDERS: PCP Family Medicine; Referring Provider Surgery; Visit Provider Surgery
DX: R92.8 Other abnormal and inconclusive findings on diagnostic imaging of breast (principal)
CPT/HCPCS: 19081; 77061; 77065; G0279

== ENCOUNTER → 2021-09-28 16:40 | Outpatient (CLI) | payer OTHER, SELFPAY ==
[2020-09-28 13:14] VITALS: BMI 36.9
--- NOTE | 2021-09-28 16:33 | BI_ITS ---
MAMMOGRAPHY - BILATERAL SCREENING REASON FOR EXAM: Female, 56 years old. Routine annual screening examination. PERTINENT HISTORY: Grandmother with breast cancer. TECHNIQUE: Digital bilateral breast rich (3D mammographic acquisition) in the CC and MLO projections. 2-D mediolateral oblique (MLO) and craniocaudad (CC) views of both breasts were obtained. CAD: Full Field Digital Mammography with Computer Added Detection was performed. COMPARISON: Comparison is made with prior study dated 08/25/2020 and 08/24/2019. FINDINGS: Breast Composition: The breasts are heterogeneously dense, which may obscure small masses. There are no dominant masses or suspicious calcifications. Stable small benign-appearing bilateral axillary lymph nodes. No other significant abnormalities are identified. There has been no significant change since the prior study. BI/SCRN MAMM (CAD)W/RICH BILAT IMPRESSION: Stable bilateral screening mammogram. Yearly follow-up mammogram recommended. (A) ASSESSMENT CATEGORY: BIRADS Category 2: Benign. A letter regarding these results will be sent to the patient by the facility within 30 days. Approximately 10% of breast cancers are not detected by mammography. A normal mammogram should not delay biopsy of a clinically suspicious abnormality. [id number] Electronically Signed: Teodoro Saleem MD at 8:26 EST , Service support ,
== END ==
PROVIDERS: PCP Family Medicine; Referring Provider Surgery; Visit Provider Surgery
DX: Z12.31 Encounter for screening mammogram for malignant neoplasm of breast (principal)
CPT/HCPCS: 77063; 77067

== ENCOUNTER → 2022-09-16 | Outpatient (CLI) | payer OTHER, SELFPAY ==
--- NOTE | 2022-09-16 06:41 | MRI_ITS ---
STUDY: MRI RIGHT KNEE REASON FOR EXAM: Female, 57 years old. Pain. Osteoarthritis. TECHNIQUE: Standardized fat and water weighted pulse sequences were obtained in all 3 orthogonal planes. COMPARISON: None. FINDINGS: There is partial tear of the posterior horn of the medial meniscus adjacent to the meniscal root, series 8 images 12/32 and 13/32. There is diffuse, less than 50% thickness articular cartilage loss of the medial femorotibial compartment. There is mild osteoarthritic spur formation of the medial knee compartment. Normal medial collateral ligamentous complex (MCL). Normal distal semimembranosus, gracilis and semitendinosus tendons. Normal lateral meniscus. Normal hyaline cartilage of the lateral femorotibial compartment. Normal lateral femoral condyle and tibial plateau. Normal proximal tibiofibular articulation. Normal lateral collateral (fibular) ligament. There is moderate tenosynovitis of the popliteus tendon sheath with moderate synovial fluid. Normal biceps femoris tendon. Normal anterior cruciate ligament (ACL). Normal posterior cruciate ligament (PCL). Normal congruent patellofemoral articulation. There is diffuse, greater than 50% thickness articular cartilage loss of the patellofemoral compartment. Normal medial and lateral patellar retinaculum. Normal quadriceps tendon. Normal patellar tendon. Normal Hoffa''s fat pad. There is a small volume joint effusion. There is 5.1 cm popliteal cyst. The soft tissues are unremarkable. The otherwise visualized osseous structures are unremarkable. MRI/Lower Ext Joint Only (Routine) IMPRESSION: Medial meniscus tear. Degenerative change. Joint effusion with popliteal cyst. Popliteus tenosynovitis. Electronically Signed: Paul Alcaraz MD at 8:21 EDT ,
== END | disposition home or self-care (01) ==
PROVIDERS: PCP Family Medicine; Referring Provider Orthopaedic Surgery; Visit Provider Orthopaedic Surgery
DX: M17.11 Unilateral primary osteoarthritis, right knee (principal)
CPT/HCPCS: 73721

== ENCOUNTER 2022-10-04 16:18 | Outpatient (CLI) | payer OTHER, SELFPAY ==
--- NOTE | 2022-10-04 16:22 | BI_ITS ---
MAMMOGRAPHY - BILATERAL SCREENING REASON FOR EXAM: Female, 57 years old. Routine annual screening examination. PERTINENT HISTORY: Grandmother with breast cancer. TECHNIQUE: Digital bilateral breast rich (3D mammographic acquisition) in the CC and MLO projections. 2-D mediolateral oblique (MLO) and craniocaudad (CC) views of both breasts were obtained. CAD: Full Field Digital Mammography with Computer Added Detection was performed. COMPARISON: Comparison is made with prior study dated 09/28/2021 and 09/30/2020. FINDINGS: Breast Composition: The breasts are heterogeneously dense, which may obscure small masses. There are no dominant masses or suspicious calcifications. Stable small benign-appearing bilateral axillary lymph nodes. No other significant abnormalities are identified. There has been no significant change since the prior study. BI/SCRN MAMM (CAD)W/RICH BILAT IMPRESSION: Stable bilateral screening mammogram. Yearly follow-up mammogram recommended. (A) ASSESSMENT CATEGORY: BIRADS Category 2: Benign. A letter regarding these results will be sent to the patient by the facility within 30 days. Approximately 10% of breast cancers are not detected by mammography. A normal mammogram should not delay biopsy of a clinically suspicious abnormality. [id number] Electronically Signed: Teodoro Saleem MD at 8:27 EST ,
== END 2022-10-04 23:59 | disposition home or self-care (01) ==
LOC: OPBI 16:20
PROVIDERS: PCP Family Medicine; Visit Provider Family Medicine
DX: Z12.31 Encounter for screening mammogram for malignant neoplasm of breast (principal); Z80.3 Family history of malignant neoplasm of breast
CPT/HCPCS: 77063; 77067

== ENCOUNTER → 2023-10-16 | Outpatient (CLI) | payer OTHER, SELFPAY ==
--- NOTE | 2023-10-16 12:41 | BI_ITS ---
MAMMOGRAPHY - BILATERAL SCREENING REASON FOR EXAM: Female, 58 years old. Routine annual screening examination. PERTINENT HISTORY: Grandmother with breast cancer. TECHNIQUE: Digital bilateral breast rich (3D mammographic acquisition) in the CC and MLO projections. 2-D mediolateral oblique (MLO) and craniocaudad (CC) views of both breasts were obtained. CAD: Full Field Digital Mammography with Computer Added Detection was performed. COMPARISON: Comparison is made with prior study dated October 04, 2022 and September 28, 2021. FINDINGS: Breast Composition: The breasts are heterogeneously dense, which may obscure small masses. There is a 4.1 mm x 5.5 mm well-defined nodule in the upper outer aspect of the right breast. Correlation with ultrasound is recommended. Stable small bilateral axillary lymph nodes. No other significant abnormalities are identified. BI/SCRN MAMM (CAD)W/RICH BILAT IMPRESSION: 4.1 mm x 5.5 mm well-defined nodule in the upper-outer quadrant of the right breast. Correlation with ultrasound is recommended. ASSESSMENT CATEGORY: BIRADS Category 0: Incomplete. Need additional imaging evaluation. A letter regarding these results will be sent to the patient by the facility within 30 days. Approximately 10% of breast cancers are not detected by mammography. A normal mammogram should not delay biopsy of a clinically suspicious abnormality. [id number] Electronically Signed: Teodoro Saleem MD at 13:27 EST ,
== END | disposition home or self-care (01) ==
LOC: OPBI 12:39
PROVIDERS: PCP Family Medicine; Referring Provider Family Medicine; Visit Provider Family Medicine
DX: Z12.31 Encounter for screening mammogram for malignant neoplasm of breast (principal); Z80.3 Family history of malignant neoplasm of breast
CPT/HCPCS: 77063; 77067

== ENCOUNTER → 2023-10-23 | Outpatient (CLI) | payer OTHER, SELFPAY ==
--- NOTE | 2023-10-23 14:39 | US_ITS ---
STUDY: ULTRASOUND BREAST - RIGHT REASON FOR EXAM: Female, 58 years old. Abnormal screening mammogram. TECHNIQUE: Axial and longitudinal images of the RIGHT breast were performed with a high resolution ultrasound transducer. # OF IMAGES: 65 COMPARISON: Comparison is made with prior mammogram dated October 16, 2023. Comparison is also made with prior sonogram of the right breast dated July 29, 2016. FINDINGS: RIGHT Breast: The right frontal region as well as the upper outer quadrant of the right breast was examined with ultrasound. Dilated ducts. The mammographic abnormality corresponds to a 7 mm x 6 mm x 3 mm cyst at the 9 to 10:00 position of the breast at 9 cm from the nipple. It is also evidence of a 3 mm x 2 mm x 2 mm slightly echogenic nodular density with vascularity within a dilated duct at the 12:00 position in the breast at 2 cm from the nipple. This may represent a papilloma. US/Breast Limited Unilateral IMPRESSION: Dilated ducts. Benign cyst corresponding to the mammographic abnormality. Findings suggestive of a 3 mm x 2 mm x 2 mm papilloma in a dilated duct. ASSESSMENT CATEGORY: BIRADS Category 2: Benign. A letter regarding these results will be sent to the patient by the facility within 30 days. Electronically Signed: Teodoro Saleem MD at 9:58 EST ,
== END | disposition home or self-care (01) ==
LOC: OPUS 14:37
PROVIDERS: PCP Family Medicine; Referring Provider Family Medicine; Visit Provider Family Medicine
DX: N60.01 Solitary cyst of right breast (principal)
CPT/HCPCS: 76642

== ENCOUNTER → 2023-11-16 | Outpatient (CLI) | payer OTHER, SELFPAY ==
--- NOTE | 2023-11-16 13:13 | MRI_ITS ---
STUDY: BILATERAL BREAST MR WITHOUT AND WITH CONTRAST REASON FOR EXAM: Female, 58 years old. Lesion of right mammogram. Workup. TECHNIQUE: Multi-sequence multi-echo imaging of both breasts was performed with a dedicated breast coil. T1-weighted and T2-weighted images were performed before the administration of contrast. T1-weighted images were also performed after the intravenous administration of 21 mL of Clariscan contrast. COMPARISON: Screening mammograms dated October 04, 2022 and October 16, 2023. Right breast ultrasound dated October 23, 2023. FINDINGS: RIGHT BREAST: Heterogeneously dense fibroglandular tissue with marked background enhancement. 6 mm in diameter circumscribed lesion at approximately the 9:00 position compatible with a benign lymph node. No abnormal enhancing masses or areas of non-mass enhancement in the right breast. LEFT BREAST: Heterogeneously dense fibroglandular tissue with marked background enhancement. No abnormal enhancing masses or areas of non-mass enhancement in the left breast. No enlarged or abnormal lymph nodes. No abnormality in the visualized regions of the chest or liver. MRI/Breast Bilateral W/O and W IMPRESSION: Small lymph node in the right breast. No other significant abnormality in either the right or the left breast. Yearly screening mammogram recommended. CATEGORY: BIRADS Category 2: Benign. A letter regarding these results will be sent to the patient by the facility within 30 days. Electronically Signed: Shoaib Bonilla MD at 10:35 EST ,
--- OUTSIDE RECORDS SUMMARY | 2023-11-16 13:31 | XMS RPT_ITS | CCD ---
Author Name Unknown Address [address] [place] [address] Organization [facility] Care Team Providers Care General Operator Name Role Phone Marcellus Cherry Unavailable Unavailable Stenverena, Marcellus Unavailable Unavailable Marcellus Cherry Unavailable Unavailable Unavailable Stenverena, Marcellus Unavailable Juanpablo Hanna Unavailable Unavailable Indra Glover Unavailable Tayo Yoder Unavailable Unavailable Jose Lilly Unavailable Unavailable Dilip, Dr. Marcellus Zhang Primary Care Unava ilable MD MURALI BARRON Attending Unava ilable MD MURALI BARRON Referring Unava ilable Stencel, Dr. Marcellus Zhang Primary Care Unava ilable Stencel, Dr. Marcellus Zhang Attending Unava ilable Stencel, Dr. Marcellus Zhang Referring Unava ilable Stencel, Dr. Marcellus Zhang Primary Care Unava ilable Stencel, Dr. Marcellus Zhang Attending Unava ilable Stencel, Dr. Marcellus Zhang Referring Unava ilable Stencel, Dr. Marcellus Zhang Primary Care Unava ilable Stencel, Dr. Marcellus Zhang Attending Unava ilable Stencel, Dr. Marcellus Zhang Referring Unava ilable Stencel, Dr. Marcellus Zhang Primary Care Unava ilable Stencel, Dr. Marcellus Zhang Attending Unava ilable Stencel, Dr. Marcellus Zhang Referring Unava ilable Stencel Marcellus COLON Primary Care Provider Heather Onofre Unavailable Unavailabl e Marcellus Cherry MD Primary Care Provider Marcellus Cherry MD Unavailable Dilip, Dr. Marcellus Zhang Attending Unava ilable Stencel, Dr. Marcellus Zhang Primary Care Adriva ilHeather Hui Attending Unavailabl e Stencel, Dr. Marcellus Zhang Primary Care Adriva ilable Heather Onofre Attending Unavailabl e Stencel, Dr. Marcellus Zhang Primary Care Unava ilable Jose, Ms. Lilly Saavedra Attending Unava ilable Stencel, Dr. Marcellus Zhang Primary Care Unava ilable STENCEL, MARCELLUS Morin Primary Care Unavailable STENCEL, MARCELLUS Morin Primary Care Unavailable STENCEL, MARCELLUS Morin Attending Unavailable STENCEL, MARCELLUS Morin Referring Unavailable STENCEL, MARCELLUS Morin Primary Care Unavailable STENCEL, MARCELLUS Morin Attending Unavailable STENCEL, MARCELLUS Morin Primary Care Unavailable STENCEL, MARCELLUS Morin Attending Unavailable STENCEL, MARCELLUS Morin Referring Unavailable STENCEL, MARCELLUS Morin Primary Care Unavailable STENCEL, MARCELLUS Morin Attending Unavailable STENCEL, MARCELLUS Morin Referring Unavailable STENCEL, MARCELLUS Morin Primary Care Unavailable STENCEL, MARCELLUS Morin Attending Unavailable STENCEL, MARCELLUS Morin Primary Care Unavailable Allergies Allergy Classification Reported Allergen(s) Allergy Type Date of Onset Reaction(s) Facility Angiotensin Converting Enzyme (NORAH) Inhibitors (1 source) Lisinopril; Translations: [lisinopril] Drug Allergy [facility] Work Phone: Cephalosporins (antibiotic) (1 source) Cefuroxime; Translations: [Ceftin] Drug Allergy [facility] Work Phone: (15 sources) Cefuroxime; Translations: [Ceftin] Drug Allergy [facility] Work Phone: (20 sources) Lisinopril; Translations: [lisinopril] Drug Allergy 12-28-2022 Unknown [facility] Work Phone: (2 sources) cefdinir Drug Allergy Other [facility] (6 sources) Cefuroxime; Translations: [CEFUROXIME AXETIL] Drug Allergy 12-28-2022 Unknown [facility] Medications Current Medications Medication Drug Class(es) Dates Sig (Normalized) Sig (Original) azithromycin 250 mg oral tablet (4 sources) Macrolide Antimicrobial Start: 08-10-2023 End: 11-10-2023 azithromycin (Zithromax) 250 mg tablet Indications: Subacute cough Take 2 tabs on day 1, then 1 tab daily on days 2 through 5. 6 tablet 1 08/10/2023 11/10/2023 Discontinued (Med List Cleanup) Completed/Discontinued Medications Medication Drug Class(es) Dates Sig (Normalized) Sig (Original) [id number] 200 actuat albuterol 0.09 mg/actuat metered dose inhaler (3 sources) beta2-Adrenergic Agonist Start: 10-21-2022 End: 10-30-2022 take 2 puff(s) by inhalation every four hours as needed for wheezing albuterol 90 mcg/inh inhalation aerosol ; 2 puff(s) inhaled every 4 hours, As Needed for wheezing or shortness of breath Quantity: 1 Refills: 0 Ordered: 21-Oct-2022 Lilly Garcia Start: 21-Oct-2022 End: 30-Oct-2022 Generic Substitution Allowed Comments: For inhalation only.It is very important that you take or use this exactly as directed. Do not skip doses or discontinue unless directed by your doctor.Obtain medical advice before taking any non-prescription drugs as some may affect the action of this medication.Shake well before use. Problems Active Problems Problem Classification Problem Date Documented Da te Episodic/Chronic Chronic obstructive pulmonary disease and bronchiectasis (2 sources) Chronic obstructive pulmonary disease and bronchiectasis 08-23-2021 Past or Other Problems Problem Classification Problem Date Documented Da te Episodic/Chronic Acute bronchitis (3 sources) Acute bronchitis; Translations: [Acute bronchitis] Onset: 10-21-2022 10-21-2022 Episodic Heart valve disorders (20 sources) Heart murmur; Translations: [Undiagnosed cardiac murmurs] Onset: 12-28-2022 12-28-2022 Episodic Other aftercare (1 source) USP (current) use of oral hypoglycemic drugs; Translations: [USP (current) use of oral hypoglycemic drugs] Onset: 03-06-2023 Episodic Other aftercare (1 source) 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; Translations: [Other mcfp (current) drug therapy] Onset: 03-06-2023 Episodic Other connective tissue disease (1 source) Pain in unspecified limb; Translations: [Pain in unspecified limb] Onset: 03-07-2023 Episodic Other inflammatory condition of skin (2 sources) Erythematous condition, unspecified; Translations: [Erythematous condition, unspecified] Onset: 03-06-2023 Episodic Other non-traumatic joint disorders (6 sources) Pain in right knee; Translations: [Acute pain of right knee] Onset: 12-28-2022 03-06-2023 Episodic Other non-traumatic joint disorders (3 sources) Knee pain; Translations: [Pain in right knee] Onset: 12-28-2022 12-28-2022 Episodic Other non-traumatic joint disorders (2 sources) Pain in left knee; Translations: [Pain in left knee] Onset: 03-06-2023 Episodic Other skin disorders (9 sources) Epidermoid cyst of skin; Translations: [Sebaceous cyst] Onset: 12-28-2022 12-28-2022 Episodic Other skin disorders (2 sources) Localized swelling, mass and lump, left lower limb; Translations: [Localized swelling, mass and lump, left lower limb] Onset: 03-06-2023 Episodic Other skin disorders (1 source) Epidermal cyst; Translations: [Epidermal cyst] Onset: 12-28-2022 Episodic Residual codes; unclassified (19 sources) Insomnia; Translations: [Insomnia, unspecified] Onset: 12-28-2022 12-28-2022 Episodic Unclassified (2 sources) Subacute cough; Translations: [Subacute cough] Onset: 08-10-2023 Results Test Name Value Interpretation Reference Range Facil ity Vital Signs Date Time Vital Sign Value Performing Clinician Facility 11-10-2023 11:170500 Body height 160 cm Marcellus Cherry MD Work Phone: [facility] 11-10-2023 11:17-0500 Body mass index (BMI) [Ratio] 40.81 kg/m2 Marcellus Cherry MD Work Phone: [facility] 11-10-2023 11:17-0500 Body weight 104.51 kg Marcellus Cherry MD Work Phone: [facility] 11-10-2023 11:17-0500 Diastolic blood pressure 88 mm[Hg] Marcellus Cherry MD Work Phone: [facility] 11-10-2023 11:17-0500 Heart rate 76 /min Marcellus Cherry MD Work Phone: [facility] 11-10-2023 11:17-0500 SaO2% (BldA) [Mass fraction] 95 % Marcellus Cherry MD Work Phone: [facility] 11-10-2023 11:17-0500 Systolic blood pressure 144 mm[Hg] Marcellus Cherry MD Work Phone: [facility] 08-10-2023 16:15-0400 Body height 160 cm Marcellus Cherry MD Work Phone: 5(861)522-[address] [place] [address] 08-10-2023 16:15-0400 Body mass index (BMI) [Ratio] 41.91 kg/m2 Marcellus Cherry MD Work Phone: [facility] 08-10-2023 16:15-0400 Body weight 107.32 kg Marcellus Cherry MD Work Phone: 3(066)[phone] [place] [address] 08-10-2023 16:15-0400 Diastolic blood pressure 78 mm[Hg] Marcellus Cherry MD Work Phone: 2(156)166-210170 [place] [address] 08-10-2023 16:15-0400 Heart rate 86 /min Marcellus Cherry MD Work Phone: [facility] 08-10-2023 16:15-0400 SaO2% (BldA) [Mass fraction] 97 % Marcellus Cherry MD Work Phone: [facility] 08-10-2023 16:15-0400 Systolic blood pressure 140 mm[Hg] Marcellus Cherry MD Work Phone: [facility] 05-31-2023 08:33-0400 Body height 160 cm Marcellus Cherry MD Work Phone: [facility] 05-31-2023 08:33-0400 Body mass index (BMI) [Ratio] 42.87 kg/m2 Marcellus Cherry MD Work Phone: 5(223)[phone] [place] [address] 05-31-2023 08:33-0400 Body weight 109.77 kg Marcellus Cherry MD Work Phone: [facility] 05-31-2023 08:33-0400 Diastolic blood pressure 80 mm[Hg] Marcellus Cheryr MD Work Phone: [facility] 05-31-2023 08:33-0400 Heart rate 82 /min Marcellus Cherry MD Work Phone: [facility] 05-31-2023 08:33-0400 SaO2% (BldA) [Mass fraction] 95 % Marcellus Cherry MD Work Phone: [facility] 05-31-2023 08:33-0400 Systolic blood pressure 128 mm[Hg] Marcellus Cherry MD Work Phone: [facility] 03-06-2023 23:15-0400 Diastolic blood pressure 74 mm[Hg] Marcellus Cherry Other Phone: [facility] 03-06-2023 23:15-0400 Heart rate 90 /min Marcellus Cherry Other Phone: [facility] 03-06-2023 23:15-0400 Respiratory rate 16 /min Marcellus Cherry Other Phone: [facility] 03-06-2023 23:15-0400 SaO2% (BldA) [Mass fraction] 96 % Marcellus Cherry Other Phone: [facility] 03-06-2023 23:15-0400 Systolic blood pressure 168 mm[Hg] Marcellus Cherry Other Phone: [facility] 03-06-2023 21:20-0400 Body height 160 cm Marcellus Cherry Other Phone: [facility] 03-06-2023 21:20-0400 Body temperature 98.06 [degF] Marcellus Cherry Other Phone: [facility] 03-06-2023 21:20-0400 Body weight 106.8 kg Marcellus Cherry Other Phone: [facility] 02-27-2023 13:47-0400 Body height 160 cm Marcellus Cherry MD Work Phone: [facility] 02-27-2023 13:47-0400 Body mass index (BMI) [Ratio] 42.6 kg/m2 Marcellus Cherry MD Work Phone: [facility] 02-27-2023 13:47-0400 Body weight 109.09 kg Marcellus Cherry MD Work Phone: [facility] 02-27-2023 13:47-0400 Diastolic blood pressure 70 mm[Hg] Marcellus Cherry MD Work Phone: [facility] 02-27-2023 13:47-0400 Heart rate 89 /min Marcellus Cherry MD Work Phone: [facility] 02-27-2023 13:47-0400 SaO2% (BldA) [Mass fraction] 96 % Marcellus Cherry MD Work Phone: [facility] 02-27-2023 13:47-0400 Systolic blood pressure 134 mm[Hg] Marcellus Cherry MD Work Phone: [facility] 10-21-2022 11:40-0500 Body height 161 cm Marcellus Cherry Other Phone: [facility] 10-21-2022 11:40-0500 Body temperature 97.7 [degF] Marcellus Cherry Other Phone: [facility] 10-21-2022 11:40-0500 Diastolic blood pressure 79 mm[Hg] Marcellus Cherry Other Phone: [facility] 10-21-2022 11:40-0500 Heart rate 78 /min Marcellus Cherry Other Phone: [facility] 10-21-2022 11:40-0500 SaO2% (BldA) [Mass fraction] 95 % Marcellus Cherry Other Phone: [facility] 10-21-2022 11:40-0500 Systolic blood pressure 141 mm[Hg] Marcellus Cherry Other Phone: [facility] 09-12-2022 15:56-0400 Body height 160.02 cm Marcellus Huntercel Work Phone: [facility] Work Phone: 09-12-2022 15:56-0400 Body mass index (BMI) [Ratio] 40.83 kg/m2 Marcellus Huntercel Work Phone: [facility] Work Phone: 09-12-2022 15:56-0400 Body surface area Derived from formula 2.05 m2 Marcellus Huntercel Work Phone: [facility] Work Phone: 09-12-2022 15:56-0400 Body weight 104.55 kg Marcellus Huntercel Work Phone: [facility] Work Phone: 09-12-2022 15:56-0400 Diastolic blood pressure 78 mm[Hg] Marcellus Huntercel Work Phone: [facility] Work Phone: 09-12-2022 15:56-0400 Heart rate 81 /min Marcellus Huntercel Work Phone: [facility] Work Phone: 09-12-2022 15:56-0400 SaO2% (BldA) [Mass fraction] 97 % Marcellus Huntercel Work Phone: [facility] Work Phone: 09-12-2022 15:56-0400 Systolic blood pressure 138 mm[Hg] Marcellus Morin Stencel Work Phone: [facility] Work Phone: 07-21-2022 15:52-0400 Body height 160.02 cm Marcellus Morin Stencel Work Phone: [facility] Work Phone: 07-21-2022 15:52-0400 Body mass index (BMI) [Ratio] 40.74 kg/m2 Marcellus Huntercel Work Phone: [facility] Work Phone: 07-21-2022 15:52-0400 Body surface area Derived from formula 2.05 m2 Marcellus Huntercel Work Phone: [facility] Work Phone: 07-21-2022 15:52-0400 Body weight 104.33 kg Marcellus Huntercel Work Phone: [facility] Work Phone: 07-21-2022 15:52-0400 Diastolic blood pressure 80 mm[Hg] Marcellus Huntercel Work Phone: [facility] Work Phone: 07-21-2022 15:52-0400 Heart rate 77 /min Marcellus Huntercel Work Phone: [facility] Work Phone: 07-21-2022 15:52-0400 SaO2% (BldA) [Mass fraction] 98 % Marcellus Huntercel Work Phone: [facility] Work Phone: 07-21-2022 15:52-0400 Systolic blood pressure 160 mm[Hg] Marcellus Huntercel Work Phone: [facility] Work Phone: 07-17-2022 21:02-0400 Diastolic blood pressure 67 mm[Hg] Marcellus uHntercel Other Phone: [facility] 07-17-2022 21:02-0400 Heart rate 77 /min Marcellus Stencel Other Phone: [facility] 07-17-2022 21:02-0400 Respiratory rate 18 /min Marcellus Huntercel Other Phone: [facility] 07-17-2022 21:02-0400 SaO2% (BldA) [Mass fraction] 97 % Marcellus Huntercel Other Phone: [facility] 07-17-2022 21:02-0400 Systolic blood pressure 143 mm[Hg] Marcellus Huntercel Other Phone: [facility] 07-17-2022 18:18-0400 Body height 160 cm Marcellus Huntercel Other Phone: [facility] 07-17-2022 18:18-0400 Body temperature 98.42 [degF] Marcellus Huntercel Other Phone: [facility] 07-17-2022 18:18-0400 Body weight 102 kg Marcellus Huntercel Other Phone: [facility] 06-06-2022 10:43-0400 Body height 160.02 cm Marcellus Huntercel Work Phone: [facility] Work Phone: 06-06-2022 10:43-0400 Body mass index (BMI) [Ratio] 42.22 kg/m2 Marcellus Huntercel Work Phone: [facility] Work Phone: 06-06-2022 10:43-0400 Body surface area Derived from formula 2.08 m2 Marcellus Huntercel Work Phone: [facility] Work Phone: 06-06-2022 10:43-0400 Body weight 108.1 kg Marcellus Huntercel Work Phone: [facility] Work Phone: 06-06-2022 10:43-0400 Diastolic blood pressure 78 mm[Hg] Marcellus Huntercel Work Phone: [facility] Work Phone: 06-06-2022 10:43-0400 Heart rate 89 /min Marcellus Huntercel Work Phone: [facility] Work Phone: 06-06-2022 10:43-0400 SaO2% (BldA) [Mass fraction] 97 % Marcellus Huntercel Work Phone: [facility] Work Phone: 06-06-2022 10:43-0400 Systolic blood pressure 142 mm[Hg] Marcellus Huntercel Work Phone: [facility] Work Phone: 04-16-2022 11:41-0400 Body height 161 cm Marcellus Huntercel Other Phone: [facility] 04-16-2022 11:41-0400 Body temperature 98.24 [degF] Marcellus Huntercel Other Phone: [facility] 04-16-2022 11:41-0400 Diastolic blood pressure 91 mm[Hg] Marcellus Huntercel Other Phone: [facility] 04-16-2022 11:41-0400 Heart rate 88 /min Marcellus Huntercel Other Phone: [facility] 04-16-2022 11:41-0400 Systolic blood pressure 154 mm[Hg] Marcellus Huntercel Other Phone: [facility] 12-06-2021 14:25-0500 Body height 160.02 cm Marcellus Huntercel Work Phone: [facility] Work Phone: 12-06-2021 14:25-0500 Body mass index (BMI) [Ratio] 40.03 kg/m2 Marcellus Morin Stencel Work Phone: [facility] Work Phone: 12-06-2021 14:25-0500 Body surface area Derived from formula 2.04 m2 Marcellus Huntercel Work Phone: [facility] Work Phone: 12-06-2021 14:25-0500 Body temperature 97.6 [degF] Marcellus Huntercel Work Phone: [facility] Work Phone: 12-06-2021 14:25-0500 Body weight 102.51 kg Marcellus Cherry Work Phone: [facility] Work Phone: 09-07-2021 16:25-0400 Body height 160.02 cm Marcellus Cherry Work Phone: [facility] Work Phone: 09-07-2021 16:25-0400 Body mass index (BMI) [Ratio] 40.26 kg/m2 Marcellus Cherry Work Phone: [facility] Work Phone: 09-07-2021 16:25-0400 Body surface area Derived from formula 2.04 m2 Marcellus Cherry Work Phone: [facility] Work Phone: 09-07-2021 16:25-0400 Body temperature 96.9 [degF] Marcellus Cherry Work Phone: [facility] Work Phone: 09-07-2021 16:25-0400 Body weight 103.08 kg Marcellus Cherry Work Phone: [facility] Work Phone: 09-07-2021 16:25-0400 Diastolic blood pressure 82 mm[Hg] Marcellus Huntercel Work Phone: [facility] Work Phone: 09-07-2021 16:25-0400 Heart rate 78 /min Marcellus Cherry Work Phone: [facility] Work Phone: 09-07-2021 16:25-0400 SaO2% (BldA) [Mass fraction] 97 % Marcellus Huntercel Work Phone: [facility] Work Phone: 09-07-2021 16:25-0400 Systolic blood pressure 140 mm[Hg] Marcellus Huntercel Work Phone: [facility] Work Phone: 08-23-2021 12:08-0400 Body height 161.2 cm Marcellus Cherry Other Phone: [facility] 08-23-2021 12:08-0400 Body temperature 98.24 [degF] Marcellus Huntercel Other Phone: [facility] 08-23-2021 12:08-0400 Diastolic blood pressure 84 mm[Hg] Marcellus Huntercel Other Phone: [facility] 08-23-2021 12:08-0400 Heart rate 89 /min Marcellus Cherry Other Phone: [facility] 08-23-2021 12:08-0400 SaO2% (BldA) [Mass fraction] 96 % Marcellus Cherry Other Phone: [facility] 08-23-2021 12:08-0400 Systolic blood pressure 135 mm[Hg] Marcellus Cherry Other Phone: [facility] 05-25-2021 08:05-0400 Body height 160.02 cm Marcellus Cherry Work Phone: [facility] Work Phone: 05-25-2021 08:05-0400 Body mass index (BMI) [Ratio] 42.23 kg/m2 Marcellus Huntercel Work Phone: [facility] Work Phone: 05-25-2021 08:05-0400 Body surface area Derived from formula 2.08 m2 Marcellus Cherry Work Phone: [facility] Work Phone: 05-25-2021 08:05-0400 Body weight 108.13 kg Marcellus Cherry Work Phone: [facility] Work Phone: 05-25-2021 08:05-0400 Diastolic blood pressure 88 mm[Hg] Marcellus Cherry Work Phone: [facility] Work Phone: 05-25-2021 08:05-0400 Heart rate 76 /min Marcellus Cherry Work Phone: [facility] Work Phone: 05-25-2021 08:05-0400 SaO2% (BldA) [Mass fraction] 97 % Marcellus Cherry Work Phone: [facility] Work Phone: 05-25-2021 08:05-0400 Systolic blood pressure 144 mm[Hg] Marcellus Cherry Work Phone: [facility] Work Phone: 11-07-2019 18:03-0500 BMI (Body Mass Index) 40.92 kg/m2 Marcellus Cherry [facility] Work Phone: 11-07-2019 18:03-0500 Body weight 104.78 kg Marcellus Cherry [facility] Work Phone: 11-07-2019 18:03-0500 BP Diastolic 76 mm[Hg] Marcellus Cherry [facility] Work Phone: 11-07-2019 18:03-0500 BP Systolic 136 mm[Hg] Marcellus Cherry [facility] Work Phone: 11-07-2019 18:03-0500 BSA (Body Surface Area) 2.06 m2 Marcellus Cherry [facility] Work Phone: 11-07-2019 18:03-0500 Height 160.02 cm Marcellus Cherry [facility] Work Phone: 11-07-2019 18:03-0500 Pulse (Heart Rate) 84 /min Marcellus Cherry [facility] Work Phone: Encounters Encounter Date Encounter Type Care Provider Facility Start: 11-10-2023 End: 11-10-2023 ambulatory MARCELLUS CHERRY [facility]ulatory Start: 11-10-2023 End: 11-10-2023 Office outpatient visit 25 minutes Marcellus Cherry MD Work Phone: [facility] Procedures Date Procedure Procedure Detail Performing Clinician Start: 11-10-2023 FOLLOW UP IN FAMILY MEDICINE MARCELLUS CHERRY Start: 11-01-2023 Hemoglobin A1c/Hemoglobin.total in Blood MARCELLUS CHERRY Start: 10-16-2023 Mammography Marcellus Zacarias MD Work Phone: Start: 09-01-2023 FOLLOW UP IN FAMILY MEDICINE MARCELLUS CHERRY Start: 05-31-2023 FOLLOW UP IN FAMILY MEDICINE MARCELLUS CHERRY Start: 05-27-2023 Hemoglobin A1c/Hemoglobin.total in Blood MARCELLUS CHERRY Start: 02-24-2023 Lipid 1996 panel - S dave or Plasma Marcellus Cherry MD Work Phone: Start: 10-04-2022 Mammography Marcellus Zacarias MD Work Phone: Start: 11-07-2019 Hemoglobin glycosylated a1c Marcellus Cherry Start: 01-06-2014 Colonoscopy Marcellus Zacarias MD Work Phone: Start: 01-06-2014 Colonoscopy Marcellus Cherry Work Phone: Arthroscopy of knee Marcellus Cherry section Marcellus Elmore Cholecystectomy Marcellus Sten verena Colonoscopy Marcellus Cherry Destructive procedure Michae l Stenverena Dilation and curettage William el Stenverena Hysterectomy Marcellus Gomez el Work Phone: Plan of Treatment Date Care Activity Detail Author Start: 10-16-2024 Screening for malignant neoplasm of breast Mammogram [facility] Start: 02-25-2024 Lipid panel Lipid Panel [facility] Start: 02-25-2024 Urine screening for protein Diabetes: Urine Protein Screening [facility] Start: 02-20-2024 End: 02-20-2024 Patient encounter procedure 02/20/2024 8:40 AM EDT Office Visit [facility] [address] [place] [id number] Marcellus Cherry MD [address] [place] [address] [facility] Start: 01-31-2024 Hemoglobin A1c measurement Diabetes: Hemoglobin A1C [facility] Start: 01-06-2024 Screening for malignant neoplasm of colon [facility] Start: 11-10-2023 End: 11-10-2024 CBC panel - Blood by Automated count CBC Lab Routine Type 2 diabetes mellitus without complication, without long-term current use of insulin ([facility]) Primary hypertension Expected: 11/10/2023 (Approximate), Expires: 11/10/2024 [facility] Work Phone: Immunizations Immunization Date Immunization Notes Care Provider [facility] 09-15-2009 influenza virus vaccine, whole virus Marcellus Cherry Work Phone: [facility] 09-15-2009 influenza virus vaccine, unspecified formulation Marcellus Cherry MD Work Phone: [facility] Work Phone: Payers Date Payer Category Payer Unknown 2022 Unknown [id number] 1965 Unknown [id number] 2..[id number] 1965 Unknown [id number] 2..[id number] 1965 Unknown [id number] 2..1.750102.3.579.2.356 1964 Unknown [id number] 2..1.210968.3.579.2.356 1964 Unknown [id number] 2..1.104116.3.579.2.356 1964 Unknown [id number] 2.16.8 40.1.133207.3.579.2.1069 1964 Unknown [id number] 2.16.8 40.1.641318.3.579.2.1069 1964 Unknown [id number] 2.16.8 40.1.946592.3.579.2.1069 1964 Unknown [id number] 2.16.8 40.1.501993.3.579.2.1069 1964 Unknown [id number] 2.16.8 40.1.778285.3.579.2.1245 1964 Unknown [id number] 2.16.84 0.1.166255.3.579.2.1245 1964 Unknown [id number] 2.16.8 40.1.168640.3.579.2.4 1964 Unknown [id number] 2.16.8 40.1.814323.3.579.2.1244 1964 Unknown [id number] 2.16.8 40.1.626493.3.579.2.4 1964 Unknown [id number] 2.16.84 0.1.602931.3.579.2.1244 1965 Unknown [id number] 2.16.84 0.1.025162.3.579.2.1244 Unknown [id number] Private Health Insurance 0 [id number] Social History Date Type Detail Facility Assertion Unknown if ever smoked [facility] [place] Work Phone: Start: 02-27-2023 End: 09-01-2023 Current non-drinker of alcohol Current non-drinker of alcohol [facility] [place] Work Phone: Tobacco smoking consumption unknown [facility] Start: 02-27-2023 Tobacco smoking stat NHIS Never smoked tobacco [facility] Start: 02-27-2023 Tobacco use and exposure Smokeless tobacco non-user [facility] Work Phone: Start: 02-27-2023 End: 11-10-2023 Alcohol intake Lifetime non-drinker (finding) [facility] Work Phone: Start: 02-27-2023 End: 09-01-2023 Tobacco use panel [facility] Work Phone: Start: 1965 Sex Assigned At Not on file [facility] Work Phone: Start: 02-17-2023 End: 11-10-2023 Exposure to SARS-CoV-2 (event) Not sure [facility] Functional Status Date Assessment Result Facility NEGATED: Highlighted row Functional performance Functional status health issues are not documented [facility] Work Phone: Mental Status Date Assessment Result Facility NEGATED: Highlighted row Cognitive function [Interpretation] Cognitive status health issues are not documented [facility] Work Phone: Clinical Notes 08-20-2021 to 11-10-2023 Marcellus Cherry MD - 11/10/2023 11:00 AM Chitra Cherry MD - 08/10/2023 3:40 PM Robert Cherry MD - 05/31/2023 8:40 AM Robert Cherry MD - 02/27/2023 1:40 PM EDT<item> Note Date & Type Note Facility 11-10-2023 History of Present illness Narrative Subjective Patient ID: Nenita Day is a 58 y.o. female who presents for Follow-up (3 mo rev labs). HPI since the last office visit there have been no interval operations, hospitalizations, important illnesses or injuries. Diabetes has lost wweight, stable activity, A1c from 83 to 71. HTN-Takes and tolerates meds without side effects. No alcohol. no tobacco. no exercise. low salt. Reviewed recommendation for 150 minutes of exercise per week including 2 days of weight training if over age 50. She did very well on Diovan HCT and we had to write for formulary overrides. With her most recent insurance they denied it until we retried other items. She did not tolerate losartan hydrochlorothiazide. We have her on hydrochlorothiazide 25 alone and has not gotten her to goal her home readings average above 140. As such we will write for the valsartan hydrochlorothiazide starting at one 6012.5 monitor blood pressures and if not to goal will increase to 3 20-25 which I believe was her previous dose. I was uncomfortable to start there, and she has lost weight. Dense breasts had a number of cysts has had ultrasound and had a papilloma. Although these are benign wanted her to see surgery. We have now gotten an MRI scheduled for next week Review of Systems General-no fatigue weight to within 10 pounds ENT no problems with vision swallowing Cardiac no chest pains palpitations change in exercise tolerance or capacity Pulmonary no cough shortness of breath GI no heartburn or abdominal pain Musculoskeletal no joint pains Objective BP 144/88 Pulse 76 Ht 1.6 m (5' 3 ) Wt 105 kg (230 lb 6.4 oz) SpO2 95% BMI 40.81 kg/m Physical Exam General: Alert, No acute distress. Appears stated age Eye: Pupils are equal, round and reactive to light, Extraocular movements are intact, Normal conjunctiva. Neck: Supple, Non-tender, No carotid bruit, No jugular venous distention, No lymphadenopathy, No thyromegaly. Respiratory: Lungs are clear to auscultation, Respirations are non-labored, Breath sounds are equal. Cardiovascular: Normal rate, Regular rhythm, No murmur. Gastrointestinal: Soft, Non-tender, No organomegaly. No solid or pulsatile mass Integumentary: Warm, Dry. No concerning lesions on exposed areas Neurologic: Alert, Oriented. Gross and fine motor intact, CN 2-12 intact Psychiatric: Cooperative, Appropriate mood & affect. 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 female who presents for Cough and Nasal Congestion. HPI never completely gotovercough fromcovid. This week now ST, ears and cough No atb 9 mo , tob-0 Review of Systems No fever chills Objective BP 140/78 Pulse 86 Ht 1.6 m (5' 3 ) Wt 107 kg (236 lb 9.6 oz) SpO2 97% BMI 41.91 kg/m Physical Exam Nasal mucosa violaceous TMs dull throat mild erythema no adenopathy in neck heart regular lungs clear to auscultation Assessment/Plan Problem List Items Addressed This Visit None Visit Diagnoses Subacute cough - Primary Relevant Medications azithromycin (Zithromax) 250 mg tablet Other Relevant Orders XR chest 2 views documented in this encounter [facility] Work Phone: 05-31-2023 History of Present illness Narrative Subjective Patient ID: Nenita Day is a 57 y.o. female who presents for Follow-up (3 mo). HPI Since the last office visit there have been no interval operations, hospitalizations, important illnesses or injuries. Blood clot behind knee, sees Dr. Valenzuela and in th for knee Dm ooc- nwill rebouble non pharm. Diarrhea on met, currently on glipizide 5 mg daily. Reviewed options for additional pharmacotherapy Plantar fasciitis reviewed exercise Ar/so Refill of doxycycline for episodic cystic infections HTN-Takes and tolerates meds without side effects. No alcohol. no tobacco. no exercise. low salt. Reviewed recommendation for 150 minutes of exercise per week including 2 days of weight training if over age 50 Cannot get Diovan covered by insurance so we will start on losartan hydrochlorothiazide 50/12.5 and report blood pressures in a couple week Review of Systems General-no fatigue weight to within 10 pounds ENT no problems with vision swallowing Cardiac no chest pains palpitations change in exercise tolerance or capacity Pulmonary no cough shortness of breath GI no heartburn or abdominal pain Musculoskeletal no joint pains Objective BP 128/80 Pulse 82 Ht 1.6 m (5' 3 ) Wt 110 kg (242 lb) SpO2 95% BMI 42.87 kg/m Physical Exam General: Alert, No acute distress. Appears stated age Eye: Pupils are equal, round and reactive to light, Extraocular movements are intact, Normal conjunctiva. Neck: Supple, Non-tender, No carotid bruit, No jugular venous distention, No lymphadenopathy, No thyromegaly. Respiratory: Lungs are clear to auscultation, Respirations are non-labored, Breath sounds are equal. Cardiovascular: Normal rate, Regular rhythm, No murmur. Gastrointestinal: Soft, Non-tender, No organomegaly. No solid or pulsatile mass Integumentary: Warm, Dry. No concerning lesions on exposed areas Neurologic: Alert, Oriented. Gross and fine motor intact, CN 2-12 intact Psychiatric: Cooperative, Appropriate mood & affect. Assessment/Plan Problem List Items Addressed This Visit Epidermal cyst Relevant Medications doxycycline (Vibramycin) 100 mg capsule HTN (hypertension) - Primary Relevant Medications losartan-hydrochlorothiazide (Hyzaar) 50-12.5 mg tablet Other Relevant Orders Follow Up In Primary Care Hemoglobin A1C Type 2 diabetes mellitus without complication, without long-term current use of insulin ([facility]) documented in this encounter [facility] Work Phone: 02-27-2023 History of Present illness Narrative Subjective Patient ID: Nenita Day is a 57 y.o. female who presents for Follow-up. HPI Since the last office visit there have been no interval operations, hospitalizations, important illnesses or injuries. Sees chavez for vitreous injury Has seen lum for wbc previously and no path. Occ home bp <140/<90(130/60s) Dm no cks, on half tab, will inc to 1 tab as A1c is climbed Tore meniscuc and poolo wlak 2x a week for 40 min Review of Systems General-no fatigue weight to within 10 pounds ENT no problems with vision swallowing Cardiac no chest pains palpitations change in exercise tolerance or capacity Pulmonary no cough shortness of breath GI no heartburn or abdominal pain Musculoskeletal ++ joint pains Objective BP 142/76 Pulse 89 Ht 1.6 m (5' 3 ) Wt 109 kg (240 lb 8 oz) SpO2 96% BMI 42.60 kg/m Physical Exam general: Alert, No acute distress. Appears stated age Eye: Pupils are equal, round and reactive to light, Extraocular movements are intact, Normal conjunctiva. Neck: Supple, Non-tender, No carotid bruit, No jugular venous distention, No lymphadenopathy, No thyromegaly. Respiratory: Lungs are clear to auscultation, Respirations are non-labored, Breath sounds are equal. Cardiovascular: Normal rate, Regular rhythm, No murmur. Gastrointestinal: Soft, Non-tender, No organomegaly. No solid or pulsatile mass Integumentary: Warm, Dry. No concerning lesions on exposed areas Neurologic: Alert, Oriented. Gross and fine motor intact, CN 2-12 intact Psychiatric: Cooperative, Appropriate mood & affect. Assessment/Plan Problem List Items Addressed This Visit Circulatory HTN (hypertension) - Primary Endocrine/Metabolic Type 2 diabetes mellitus without complication, without long-term current use of insulin ([facility]) documented in this encounter [facility] Work Phone: 07-21-2022 History of Present illness Narrative had boil on buttocks and grew and draoned. xiomy atba t trillium creekyrs ago had meniscus tear 5-6 yrs ago , now woth right sided knee pain, had pop climbing stairs and xraya nd rest and ice. prev could not walkand now some better but still mobilizer and crutches. tried tylenol aleve and tramadol.dm- nocks, switched to glip in may and is off met for gi sxHTN-Takes and tolerates meds without side effects. No alcohol. no tobacco. no exercise. low salt. Reviewed recommendation for 150 minutes of exercise per week including 2 days of weight training if over age 50 [facility] Work Phone: 08-28-2022 Hospital Discharge instructions Provider/Service: Marcellus Cancholaocation: [address] Number: [phone] [facility] 12-06-2021 History of Present illness Narrative Diabetes has taken tolerating metformin 501 a daySince the last office visit there have been no interval operations, hospitalizations, important illnesses or injuries., Has begun exercising after the holidays, weight is down 1 pound. A1c is improved to 7.1. Discussed options for follow-up and we agreed to a 6-month appointment and 3-month A1c. At the time of review of the A1c we will order more comprehensive labs for 25 May. [facility] Work Phone: 08-20-2021 History of Present illness Narrative Since the last office visit there have been no interval operations, hospitalizations, important illnesses or injuries.had covid severe pain and sifhu019+ cough, taste ans smeoll coming back. onset in early august. was not immunized.lost weight woth diet not illnessHTN-Takes and tolerates meds without side effects. No alcohol. no tobacco. ++until covid exercise. low salt. Reviewed recommendation for 150 minutes of exercise per week including 2 days of weight training if over age 50DM not controlled no cks, willstaart met er 500 with 3 mo fudiovan needed as side effects on alternative of anxiousness [facility] Work Phone: documented in this encounter [facility] Work Phone: Evaluation note* Diagnosis Primary hypertension- Primary Unspecified essential hypertension Type 2 diabetes mellitus without complication, without long-term current use of insulin ([facility]) Epidermal cyst Sebaceous cyst documented in this encounter [facility] Work Phone: Evaluation note* Diagnosis Subacute cough- Primary documented in this encounter [facility] Work Phone: Evaluation note* Diagnosis Primary hypertension- Primary Unspecified essential hypertension Type 2 diabetes mellitus without complication, without long-term current use of insulin (CMS/HCC) Papilloma of breast, unspecified laterality documented in this encounter [facility] Work Phone: History of Present illness Narrative* Since the last office visit there have been no interval operations, hospitalizations, important illnesses or injuries. * sick in dec and covid neg * HTN-Takes and tolerates meds without side effects. No alcohol. no tobacco. no exercise. low salt. Reviewed recommendation for 150 minutes of exercise per week including 2 days of weight training if over age 50 * allergra prn, left ear still crackles, consider daily h1 santiago and if not better ent as prev nssal steroid not resolbved * dm, a1c flucuatates, if walking or not now at 7.5. no cks , eye dr current, no neuropathy. walking goal of 4-5 miles. prev diarrhea with. would like to try 3 mo non pharmacologic [email or web address] Work Phone: History of Present illness Narrative* Since the last office visit there have been no interval operations, hospitalizations, important illnesses or injuries. * one trip to [facility], [place] * dm no cks, on met 500 diarhea 3-6x, would like to try cont met and tracy 3 m. * discussed options for treatment. will stop metformin and start glipizide 5 mg at half tab * HTN-Takes and tolerates meds without side effects. No alcohol. no tobacco. no exercise. low salt. Reviewed recommendation for 150 minutes of exercise per week including 2 days of weight training if over age 50 [email or web address] Work Phone: History of Present illness Narrative* dc met and on glip. * has lost weight at home 222, is not due for screening colonoscopy for 2 more years and since diarrhea has resolved off metformin no need to do earlier * not wlaking woth brace, tohabve mri and may need surgeryu. Left with arthroscope 2016. * now on glip half tab at 5 mg = 2.5 mg no longer woht diarrhea [email or web address] Work Phone: reason for referral (narrative)* Consultation (Routine) - Authorized Specialty Diagnoses / Procedures Referred By Sanjiv t Referred To Contact Primary Care Diagnoses Type 2 diabetes mellitus without complication, without long-term current use of insulin ([facility]) Procedures Follow Up In Primary Care Marcellus Cherry MD [address] [place] [address] Referral ID Status Reason Start Date Expiration Date V isits Requested Visits Authorized [id number] Authorized 02/27/2023 08/26/2023 1 1 [facility] Work Phone: Reason for referral (narrative)* Consultation (Routine) - Authorized Specialty Diagnoses / Procedures Referred By Contac t Referred To Contact Primary Care Diagnoses Primary hypertension Procedures Follow Up In Primary Care Marcellus Cherry MD [address] [place] [id number] Referral ID Status Reason Start Date Expiration Date V isits Requested Visits Authorized [id number] Authorized 05/31/2023 11/27/2023 1 1 [facility] Work Phone: Reason for referral (narrative)* Consultation (Routine) - Authorized Specialty Diagnoses / Procedures Referred By Contac t Referred To Contact Primary Care Diagnoses Type 2 diabetes mellitus without complication, without long-term current use of insulin ([facility]) Primary hypertension Procedures Follow Up [place] [address] [place] [id number] Referral ID Status Reason Start Date Expiration Date V isits Requested Visits Authorized [id number] Authorized 11/10/2023 11/09/2024 1 1 [facility] Work Phone: Summary Purpose Family History No Family History Records Found Grandparent Name Dates Details Family history of acute myoc ardial infarction(V17.3, Z82.49) Status:Active Family history of Aneurysm(4 42.9, I72.9) Status:Active Family history of hypertensi on(V17.49, Z82.49) Status:Active Family history of Primary ma lignant neoplasm of female breast(174.9, C50.919) Status:Active Family history of Primary ma lignant neoplasm of lung(162.9, C34.90) Status:Active Family history of cerebrovas cular accident (CVA)(V17.1, Z82.3) Status:Active Family history of TIA (trans ient ischemic attack)(435.9, G45.9) Status:Active aunt Name Dates Details Family history of malignant neoplasm of colon(V16.0, Z80.0) Status:Active Family history of liver canc er(V16.0, Z80.0) Status:Active uncle Name Dates Details Family history of malignant neoplasm(V16.9, Z80.9) Status:Active Mother Name Dates Details Family history of hypertensi on(V17.49, Z82.49) Status:Active Father Name Dates Details Family history of suicide(V1 7.0, Z81.8) Status:Active Unknown Family Member Name Dates Details Family history of acute myoc ardial infarction: Grandparent(V17.3, Z82.49) Status:Active Aneurysm: Grandparent Status:Active Family history of hypertensi on: Mother, Grandparent(V17.49, Z82.49) Status:Active Primary malignant neoplasm o f female breast: Grandparent Status:Active Primary malignant neoplasm o f lung: Grandparent Status:Active Family history of cerebrovas cular accident (CVA): Grandparent(V17.1, Z82.3) Status:Active TIA (transient ischemic alfa ck): Grandparent Status:Active Family history of malignant neoplasm: Uncle(V16.9, Z80.9) Status:Active Family history of malignant neoplasm of colon: Aunt(V16.0, Z80.0) Status:Active Family history of liver canc er: Aunt(V16.0, Z80.0) Status:Active Family history of suicide: F ather(V17.0, Z81.8) Status:Active Unknown Family Member Name Dates Details Family history of acute myoc ardial infarction: Grandparent(V17.3, Z82.49) Status:Active Aneurysm: Grandparent Status:Active Family history of hypertensi on: Mother, Grandparent(V17.49, Z82.49) Status:Active Primary malignant neoplasm o f female breast: Grandparent Status:Active Primary malignant neoplasm o f lung: Grandparent Status:Active Family history of cerebrovas cular accident (CVA): Grandparent(V17.1, Z82.3) Status:Active TIA (transient ischemic alfa ck): Grandparent Status:Active Family history of malignant neoplasm: Uncle(V16.9, Z80.9) Status:Active Family history of malignant neoplasm of colon: Aunt(V16.0, Z80.0) Status:Active Family history of liver canc er: Aunt(V16.0, Z80.0) Status:Active Family history of suicide: F ather(V17.0, Z81.8) Status:Active Unknown Family Member Name Dates Details Family history of acute myoc ardial infarction: Grandparent(V17.3, Z82.49) Status:Active Aneurysm: Grandparent Status:Active Family history of hypertensi on: Mother, Grandparent(V17.49, Z82.49) Status:Active Primary malignant neoplasm o f female breast: Grandparent Status:Active Primary malignant neoplasm o f lung: Grandparent Status:Active Family history of cerebrovas cular accident (CVA): Grandparent(V17.1, Z82.3) Status:Active TIA (transient ischemic alfa ck): Grandparent Status:Active Family history of malignant neoplasm: Uncle(V16.9, Z80.9) Status:Active Family history of malignant neoplasm of colon: Aunt(V16.0, Z80.0) Status:Active Family history of liver canc er: Aunt(V16.0, Z80.0) Status:Active Family history of suicide: F ather(V17.0, Z81.8) Status:Active Unknown Family Member Name Dates Details Family history of acute myoc ardial infarction: Grandparent(V17.3, Z82.49) Status:Active Aneurysm: Grandparent Status:Active Family history of hypertensi on: Mother, Grandparent(V17.49, Z82.49) Status:Active Primary malignant neoplasm o f female breast: Grandparent Status:Active Primary malignant neoplasm o f lung: Grandparent Status:Active Family history of cerebrovas cular accident (CVA): Grandparent(V17.1, Z82.3) Status:Active TIA (transient ischemic alfa ck): Grandparent Status:Active Family history of malignant neoplasm: Uncle(V16.9, Z80.9) Status:Active Family history of malignant neoplasm of colon: Aunt(V16.0, Z80.0) Status:Active Family history of liver canc er: Aunt(V16.0, Z80.0) Status:Active Family history of suicide: F ather(V17.0, Z81.8) Status:Active Unknown Family Member Name Dates Details Family history of acute myoc ardial infarction: Grandparent(V17.3, Z82.49) Status:Active Aneurysm: Grandparent Status:Active Family history of hypertensi on: Mother, Grandparent(V17.49, Z82.49) Status:Active Primary malignant neoplasm o f female breast: Grandparent Status:Active Primary malignant neoplasm o f lung: Grandparent Status:Active Family history of cerebrovas cular accident (CVA): Grandparent(V17.1, Z82.3) Status:Active TIA (transient ischemic alfa ck): Grandparent Status:Active Family history of malignant neoplasm: Uncle(V16.9, Z80.9) Status:Active Family history of malignant neoplasm of colon: Aunt(V16.0, Z80.0) Status:Active Family history of liver canc er: Aunt(V16.0, Z80.0) Status:Active Family history of suicide: F ather(V17.0, Z81.8) Status:Active Unknown Family Member Name Dates Details Family history of acute myoc ardial infarction: Grandparent(V17.3, Z82.49) Status:Active Aneurysm: Grandparent Status:Active Family history of hypertensi on: Mother, Grandparent(V17.49, Z82.49) Status:Active Primary malignant neoplasm o f female breast: Grandparent Status:Active Primary malignant neoplasm o f lung: Grandparent Status:Active Family history of cerebrovas cular accident (CVA): Grandparent(V17.1, Z82.3) Status:Active TIA (transient ischemic alfa ck): Grandparent Status:Active Family history of malignant neoplasm: Uncle(V16.9, Z80.9) Status:Active Family history of malignant neoplasm of colon: Aunt(V16.0, Z80.0) Status:Active Family history of liver canc er: Aunt(V16.0, Z80.0) Status:Active Family history of suicide: F ather(V17.0, Z81.8) Status:Active Unknown Family Member Name Dates Details Family history of acute myoc ardial infarction: Grandparent(V17.3, Z82.49) Status:Active Aneurysm: Grandparent Status:Active Family history of hypertensi on: Mother, Grandparent(V17.49, Z82.49) Status:Active Primary malignant neoplasm o f female breast: Grandparent Status:Active Primary malignant neoplasm o f lung: Grandparent Status:Active Family history of cerebrovas cular accident (CVA): Grandparent(V17.1, Z82.3) Status:Active TIA (transient ischemic alfa ck): Grandparent Status:Active Family history of malignant neoplasm: Uncle(V16.9, Z80.9) Status:Active Family history of malignant neoplasm of colon: Aunt(V16.0, Z80.0) Status:Active Family history of liver canc er: Aunt(V16.0, Z80.0) Status:Active Family history of suicide: F ather(V17.0, Z81.8) Status:Active Unknown Family Member Name Dates Details Family history of acute myoc ardial infarction: Grandparent(V17.3, Z82.49) Status:Active Aneurysm: Grandparent Status:Active Family history of hypertensi on: Mother, Grandparent(V17.49, Z82.49) Status:Active Primary malignant neoplasm o f female breast: Grandparent Status:Active Primary malignant neoplasm o f lung: Grandparent Status:Active Family history of cerebrovas cular accident (CVA): Grandparent(V17.1, Z82.3) Status:Active TIA (transient ischemic alfa ck): Grandparent Status:Active Family history of malignant neoplasm: Uncle(V16.9, Z80.9) Status:Active Family history of malignant neoplasm of colon: Aunt(V16.0, Z80.0) Status:Active Family history of liver canc er: Aunt(V16.0, Z80.0) Status:Active Family history of suicide: F ather(V17.0, Z81.8) Status:Active Unknown Family Member Name Dates Details Family history of acute myoc ardial infarction: Grandparent(V17.3, Z82.49) Status:Active Aneurysm: Grandparent Status:Active Family history of hypertensi on: Mother, Grandparent(V17.49, Z82.49) Status:Active Primary malignant neoplasm o f female breast: Grandparent Status:Active Primary malignant neoplasm o f lung: Grandparent Status:Active Family history of cerebrovas cular accident (CVA): Grandparent(V17.1, Z82.3) Status:Active TIA (transient ischemic alfa ck): Grandparent Status:Active Family history of malignant neoplasm: Uncle(V16.9, Z80.9) Status:Active Family history of malignant neoplasm of colon: Aunt(V16.0, Z80.0) Status:Active Family history of liver canc er: Aunt(V16.0, Z80.0) Status:Active Family history of suicide: F ather(V17.0, Z81.8) Status:Active Unknown Family Member Name Dates Details Family history of acute myoc ardial infarction: Grandparent(V17.3, Z82.49) Status:Active Aneurysm: Grandparent Status:Active Family history of hypertensi on: Mother, Grandparent(V17.49, Z82.49) Status:Active Primary malignant neoplasm o f female breast: Grandparent Status:Active Primary malignant neoplasm o f lung: Grandparent Status:Active Family history of cerebrovas cular accident (CVA): Grandparent(V17.1, Z82.3) Status:Active TIA (transient ischemic alfa ck): Grandparent Status:Active Family history of malignant neoplasm: Uncle(V16.9, Z80.9) Status:Active Family history of malignant neoplasm of colon: Aunt(V16.0, Z80.0) Status:Active Family history of liver canc er: Aunt(V16.0, Z80.0) Status:Active Family history of suicide: F ather(V17.0, Z81.8) Status:Active Unknown Family Member Name Dates Details Family history of acute myoc ardial infarction: Grandparent(V17.3, Z82.49) Status:Active Aneurysm: Grandparent Status:Active Family history of hypertensi on: Mother, Grandparent(V17.49, Z82.49) Status:Active Primary malignant neoplasm o f female breast: Grandparent Status:Active Primary malignant neoplasm o f lung: Grandparent Status:Active Family history of cerebrovas cular accident (CVA): Grandparent(V17.1, Z82.3) Status:Active TIA (transient ischemic alfa ck): Grandparent Status:Active Family history of malignant neoplasm: Uncle(V16.9, Z80.9) Status:Active Family history of malignant neoplasm of colon: Aunt(V16.0, Z80.0) Status:Active Family history of liver canc er: Aunt(V16.0, Z80.0) Status:Active Family history of suicide: F ather(V17.0, Z81.8) Status:Active Unknown Family Member Name Dates Details Family history of malignant neoplasm: Uncle(V16.9, Z80.9) Status:Active Family history of malignant neoplasm of colon: Aunt(V16.0, Z80.0) Status:Active Family history of liver canc er: Aunt(V16.0, Z80.0) Status:Active Family history of suicide: F ather(V17.0, Z81.8) Status:Active TIA (transient ischemic alfa ck): Grandparent Status:Active Family history of cerebrovas cular accident (CVA): Grandparent(V17.1, Z82.3) Status:Active Primary malignant neoplasm o f lung: Grandparent Status:Active Primary malignant neoplasm o f female breast: Grandparent Status:Active Family history of hypertensi on: Mother, Grandparent(V17.49, Z82.49) Status:Active Aneurysm: Grandparent Status:Active Family history of acute myoc ardial infarction: Grandparent(V17.3, Z82.49) Status:Active Unknown Family Member Name Dates Details Family history of malignant neoplasm: Uncle(V16.9, Z80.9) Status:Active Family history of malignant neoplasm of colon: Aunt(V16.0, Z80.0) Status:Active Family history of liver canc er: Aunt(V16.0, Z80.0) Status:Active Family history of suicide: F ather(V17.0, Z81.8) Status:Active TIA (transient ischemic alfa ck): Grandparent Status:Active Family history of cerebrovas cular accident (CVA): Grandparent(V17.1, Z82.3) Status:Active Primary malignant neoplasm o f lung: Grandparent Status:Active Primary malignant neoplasm o f female breast: Grandparent Status:Active Family history of hypertensi on: Mother, Grandparent(V17.49, Z82.49) Status:Active Aneurysm: Grandparent Status:Active Family history of acute myoc ardial infarction: Grandparent(V17.3, Z82.49) Status:Active Unknown Family Member Name Dates Details Family history of malignant neoplasm: Uncle(V16.9, Z80.9) Status:Active Family history of malignant neoplasm of colon: Aunt(V16.0, Z80.0) Status:Active Family history of liver canc er: Aunt(V16.0, Z80.0) Status:Active Family history of suicide: F ather(V17.0, Z81.8) Status:Active TIA (transient ischemic alfa ck): Grandparent Status:Active Family history of cerebrovas cular accident (CVA): Grandparent(V17.1, Z82.3) Status:Active Primary malignant neoplasm o f lung: Grandparent Status:Active Primary malignant neoplasm o f female breast: Grandparent Status:Active Family history of hypertensi on: Mother, Grandparent(V17.49, Z82.49) Status:Active Aneurysm: Grandparent Status:Active Family history of acute myoc ardial infarction: Grandparent(V17.3, Z82.49) Status:Active Unknown Family Member Name Dates Details Family history of acute myoc ardial infarction: Grandparent(V17.3, Z82.49) Status:Active Aneurysm: Grandparent Status:Active Family history of hypertensi on: Mother, Grandparent(V17.49, Z82.49) Status:Active Primary malignant neoplasm o f female breast: Grandparent Status:Active Primary malignant neoplasm o f lung: Grandparent Status:Active Family history of cerebrovas cular accident (CVA): Grandparent(V17.1, Z82.3) Status:Active TIA (transient ischemic alfa ck): Grandparent Status:Active Family history of malignant neoplasm: Uncle(V16.9, Z80.9) Status:Active Family history of malignant neoplasm of colon: Aunt(V16.0, Z80.0) Status:Active Family history of liver canc er: Aunt(V16.0, Z80.0) Status:Active Family history of suicide: F ather(V17.0, Z81.8) Status:Active Advance Directives No Advanced Directives Records FoundNo Advanced Directives Records FoundNo Advanced Directives Records FoundNo Advanced Directives Records FoundNo Advanced Directives Records FoundNo Advanced Directives Records Found Chief Complaint HTN CK UP3 MO DM FU REV LABS3 MO FU. REV LABS6 MO FU. REV LABSPT CAME IN FOR GLUCOSE FINGERSTICK, PT TOLERATED WELL AND TASK WA SENT TO THEIR PCP.07/17/22 [facility] ER FU RIGHT KNEE PAIN.WAS GIVEN TRAMADOL 50 MG TAB TAKE 1 TAB EVERY 6 HRS PRN ALSO WOULD LIKE BOIL ON LOWER BACK ABOVE TAILBONE CHECKED. BEEN THERE FOR 6 WKS3 MO FU. REV LABS Reason for Referral * Right Knee StrainRight Knee Strain * right knee painright knee pain Additional Source Comments INFORMATION SOURCE (unrecogn ized section and content) DATE CREATED AUTHOR AUTHOR'S ORGANIZ ATION 10/28/2022 [facility] DATE CREATED AUTHOR AUTHOR'S ORGANIZ ATION 02/26/2023 [facility] DATE CREATED AUTHOR AUTHOR'S ORGANIZ ATION 08/14/2023 [facility] DATE CREATED AUTHOR AUTHOR'S ORGANIZ ATION 11/06/2023 [facility] DATE CREATED AUTHOR AUTHOR'S ORGANIZ ATION 11/12/2023 [facility] <item><item><item><item><item> Privacy Markings (unrecogniz ed section and content) Section Author: Kyleigh Walker PROHIBITION ON REDISCLOSURE OF CONFIDENTIAL INFORMATION This notice accompanies a disclosure of information concerning a client made to you with the consent of such client. Section Author: Kyleigh Walker PROHIBITION ON REDISCLOSURE OF CONFIDENTIAL INFORMATION This notice accompanies a disclosure of information concerning a client made to you with the consent of such client. Section Author: Kyleigh Walker PROHIBITION ON REDISCLOSURE OF CONFIDENTIAL INFORMATION This notice accompanies a disclosure of information concerning a client made to you with the consent of such client. Section Author: Kyleigh Walker PROHIBITION ON REDISCLOSURE OF CONFIDENTIAL INFORMATION This notice accompanies a disclosure of information concerning a client made to you with the consent of such client. Section Author: Kyleigh Walker PROHIBITION ON REDISCLOSURE OF CONFIDENTIAL INFORMATION This notice accompanies a disclosure of information concerning a client made to you with the consent of such client. Reason for Visit (unrecogniz ed section and content) Reason Comments Follow-up 3 mo Specialty Diagnoses / Procedures Referred By Contac t Referred To Contact Primary Care Diagnoses Type 2 diabetes mellitus without complication, without long-term current use of insulin ([facility]) Procedures Follow Up In Primary Care Marcellus Cherry MD [address] [place] [address] Referral ID Status Reason Start Date Expiration Date V isits Requested Visits Authorized [id number] Authorized 02/27/2023 08/26/2023 1 1 Reason Comments Cough Nasal Congestion Reason Comments Follow-up 3 mo rev labs Specialty Diagnoses / Procedures Referred By Contnuha t Referred To Contact Primary Care Diagnoses Type 2 diabetes mellitus without complication, without long-term current use of insulin ([facility]) Procedures Follow Up In Primary Care - Established Marcellus Cherry MD [address] [place] [address] Referral ID Status Reason Start Date Expiration Date V isits Requested Visits Authorized [id number] Authorized 09/01/2023 02/28/2024 1 1 Care Teams (unrecognized sec tion and content) General Operator Relationship Specialty Start Date End Date Marcellus Cherry MD [address] [place] [address] PCP - General 07/23/19 General Operator Relationship Specialty Start Date End Date Marcellus Cherry MD [address] [place] [address] PCP - General 07/23/19 Marcellus Cherry MD [address] [place] [address] PCP - [facility] PCP 06/20/23 General Operator Relationship Specialty Start Date End Date Marcellus Cherry MD [address] [place] [address] PCP - General 07/23/19 Marcellus Cherry MD [address] [place] [address] PCP - [facility] ACO PCP 06/20/23 FOR RECORDS PERTAINING TO PATIENTS WHO ARE OR HAVE BEEN ENROLLED IN A CHEMICAL DEPENDENCY/SUBSTANCEABUSE PROGRAM, SOME INFORMATION MAY BE OMITTED. This clinical summary was aggregated from multiple sources. Caution should be exercised in using it in the provision of clinical care. This summary normalizes information from multiple sources, and as a consequence, information in this document may materially change the coding, format and clinical context of patient data. In addition, data may be omitted in some cases. CLINICAL DECISIONS SHOULD BE BASED ON THE PRIMARY CLINICAL RECORDS. [facility] [employer] [facility]. provides no warranty or guarantee of the accuracy or completeness of information in this document.
[2023-11-16 13:51] LABS: CREATININE FINGERSTICK < 1.0 mg/dL (0.55-1.02); EGFR FINGERSTICK > 60.0000 mL/min (>60)
== END | disposition home or self-care (01) ==
PROVIDERS: PCP Family Medicine; Referring Provider Family Medicine; Visit Provider Family Medicine
DX: N63.20 Unspecified lump in the left breast, unspecified quadrant (principal); R92.8 Other abnormal and inconclusive findings on diagnostic imaging of breast; D24.1 Benign neoplasm of right breast
CPT/HCPCS: 77049; A9575; A4216; C8908

== ENCOUNTER → 2024-11-12 | Outpatient (CLI) | payer OTHER, SELFPAY ==
--- NOTE | 2024-11-12 12:47 | BI_ITS ---
MAMMOGRAPHY - BILATERAL SCREENING 3-D TOMOSYNTHESIS REASON FOR EXAM: Female, 59 years old. SCREENING PERTINENT HISTORY: No significant family history. TECHNIQUE: 2-D mammograms and 3-D Tomosynthesis of the breast (s) were performed. CAD was performed. COMPARISON: 10/16/2023 FINDINGS: The breast composition is heterogeneously dense that can obscure small breast masses. Scattered benign calcifications are seen. No dense spiculated masses or suspicious microcalcifications are identified. No architectural distortion is identified. There is no skin thickening or retraction. There has been no significant change since the prior study. BI/SCRN MAMM (CAD)W/RICH BILAT IMPRESSION: No mammographic signs of malignancy. Routine yearly mammograms recommended. ASSESSMENT CATEGORY: BIRADS Category 1: Negative. A letter regarding these results will be sent to the patient by the facility within 30 days. FOLLOW UP RECOMMENDATION: Yearly follow up mammogram recommended. (A) Approximately 10% of breast cancers are not detected by mammography. A normal mammogram should not delay biopsy of a clinically suspicious abnormality. Electronically Signed: Fernando Levine MD at 15:45 EST ,
== END | disposition home or self-care (01) ==
PROVIDERS: PCP Family Medicine; Referring Provider Family Medicine; Visit Provider Family Medicine
DX: Z12.31 Encounter for screening mammogram for malignant neoplasm of breast (principal)
CPT/HCPCS: 77063; 77067